=== PATIENT | female | born 1945 | race Caucasian/White ===

== ENCOUNTER 2016-08-06 07:56 | Day surgery (SDC) | payer MEDICARE, OTHER ==
[~2016-08-06] VITALS: Ht 162.6 cm; Wt 60.0 kg
[~2016-08-06 07:56] MED LIST: 0.9% Sodium Chloride 1,000 ML IV SCH; ASCO-294 PO; AZEL23SP NS; BENZ200C44 PO; CALC600T20 PO; CHOL3000 PO; ESOM40CA53 PO; FLUT9.9S NS; HYDR-3797 PO; MELO7.5O PO; MONT10TA23 PO; OMEG-38 PO; Sodium Chloride LOK Flush 10 mL Syringe IV PRN; TRAM50TA2 PO; fentaNYL-PF 50 mCg/mL 2 mL Inj IVPUSH PRN
[2016-08-06 08:20] VITALS: BP 145/73; PULSE 66; RESP 14; O2SAT 98
[2016-08-06] MEDS ORDERED: OMEP20TA86 PO (08:26)
[2016-08-06] MEDS ORDERED: ESTR0.45 PO (08:26)
[2016-08-06] MEDS: 0.9% Sodium Chloride 1,000 ML IV SCH ×2 (08:37→09:27)
--- NOTE | 2016-08-06 09:22 | PCM.ENDEGD ---
EGD Date of Service: Aug 06, 2016 Physician Chito Zamarripa MD Indication for Procedure Cough and reflux Post Procedure Dx & Findings: Fundic polyps questionable minimal Schatzki's ring Procedure Esophagogastroduodenoscopy PROCEDURE IN DETAIL: The patient was placed in left lateral decubitus position. Bite block was placed. Scope lubricated, placed in posterior pharynx, passed through the cricopharyngeus and esophagus, slowly advanced the entire length of the gastric pouch, pylorus was identified, scope passed through the pylorus and descending portion of duodenum, withdrawn in the antrum, retroflexed upon itself for view of fundus and cardia. Scope was then withdrawn through the oropharynx. Esophagus unremarkable. The Z line was intact. However while going into the stomach, there was as small and subtle Schatzki's ring which did not see again. It is unclear whether this is a true Schatzki's ring or not for just a well- developed mucosa from insufficient inflation. Stomach showed few less than 2 mm fundic polyps. Sampling biopsies done. Retroflexion was done. Otherwise the rest of the stomach was unremarkable. Stomach was easily inflatable and deflatable using air. I have asked the distal duodenum. Duodenum appeared normal with normal villous structures with normal appearing folds. Impression Fundic polyps status post sample biopsy Recommendation Await biopsy. Presedation Assessment Risks and Benefits Informed consent was obtained from the patient after all risks and benefits including but not limited to drug reaction, infection, pain, bleeding, perforation, as well as alternatives were discussed. Patient monitoring Continuous pulse oximetry, cardiac monitoring, blood pressure monitoring, IV access, and oxygen at 2L per nasal cannula. Periprocedural Fentanyl: Fentanyl 75mcg Incrementally Midazolam: Midazolam 4mg Incrementally Complications There were no periprocedural complications identified. Post Procedure Plan Post Procedure Recommendations 1. Restrict activities today. 2. Resume normal activities in the morning. 3. Resume medications. 4. GERD behavioral modification: - Avoid fatty, acidic, spicy, large meals - Do not lie down after meals - Do not eat or drink anything for at least 2 1/2 hours before going to bed at night - Discontinue tobacco and alcohol - Decrease or avoid caffeine - Avoid chocolate and mints - Decrease weight - Avoid aspirin and non steroidal anti-inflammatory agents (NSAID) such as Aleve, Advil, Mobic, Naproxen, Ibuprofen, etc 5. Add proton pump inhibitor. Take 30 minutes before 1st meal of the day. 6. Patient informed of normal post procedure side effects as bloating, drowsiness, blood streaking in the stool 7. If gastric biopsy reveal H.pylori, continue with appropriate treatment 8. If small bowel biopsy reveals celiac, continue with appropriate treatment 9. Please don't hesitate to call me with any questions Chito Zamarripa MD Aug 06, 2016 09:22
[2016-08-06 09:54] VITALS: BP 117/67; PULSE 73; RESP 16; O2SAT 99
--- NOTE | 2016-08-06 09:55 | PCM.ENDCOL ---
Colonoscopy Date of Service: Aug 06, 2016 Physician Chito Zamarripa MD Indication for Procedure screening Post Procedure Dx & Findings: polyps Procedure Colonoscopy prep adequate withdrawal 22 min PROCEDURE IN DETAIL: After unremarkable rectal examination Olympus video colonoscope was inserted patient's anal canal and was advanced to the cecum. Landmarks are identified including the ileocecal valve and appendiceal orifice. Scope was withdrawn systematically. The mucosa of the cecum, ascending, transverse, descending, sigmoid, rectal mucosa lined with whitish, pink, smooth, glistening, normal-appearing mucosa, normal fine branching, underlying vascularity, normal haustra. The patient tolerated procedure and was transported to observation area. Around the appendiceal orifice, there was a flat polypoid structure and no banding used. It appears that could be an adenoma. It seemed to go into the appendiceal orifice. Biopsy was taken at the site using cold forceps. In the cecum, there was a 4 mm polyp which was resected completely using cold snare. In the transverse colon, there was a 2 mm polyp which was resected completely using cold snare. In the descending colon there was about 6-8 mm flat polyp which was resected completely using cold snare. In the rectum, there was a 1 mm polyp which was resected completely using cold forceps. In the rectum retroflexion which showed mild hemorrhoids anal canal was inspected carefully and the way out and mild hemorrhoids noted. Impression Polyp 3 status post complete removal Flat polypoid structure going into the appendiceal orifice. Biopsy obtained. There is still evidence going into the appendiceal orifice. Hemorrhoids Recommendation Follow up in GI clinic to go over the biopsy results. Patient may need appendix removal. Presedation Assessment Risks and Benefits Informed consent was obtained from the patient after all risks and benefits including but not limited to drug reaction, infection, pain, bleeding, perforation, as well as alternatives were discussed. Patient monitoring Continuous pulse oximetry, cardiac monitoring, blood pressure monitoring, IV access, and oxygen at 2L per nasal cannula. Periprocedural Fentanyl: Fentanyl 25mcg Midazolam: Midazolam 2mg Incrementally Complications There were no periprocedural complications identified. Post Procedure Plan Post Procedure Recommendations 1. Restrict activities today. 2. Resume normal activities in the morning. 3. Resume medications. 4. Patient informed of normal post procedure side effects as bloating, drowsiness, blood streaking in the stool. 5. average risk CRCS. If colon polyps come back as: -Hyperplastic- can repeat colonoscopy in 10 years -Tubular adenoma- repeat colonoscopy in 5 years -Tubulovillous/villous adenoma- repeat colonoscopy in 3 years -If any dysplasia- return to clinic as soon as possible 6. Please don't hesitate to call me with any questions. Chito Zamarripa MD Aug 06, 2016 09:54
[2016-08-06 10:04] VITALS: BP 121/65; PULSE 54; RESP 16; O2SAT 98
[2016-08-06 10:14] VITALS: BP 118/63; PULSE 60; RESP 16; O2SAT 98
--- NOTE | 2016-08-07 15:53 | PATH ---
SURGICAL PATHOLOGY Attending Physician:Chito Zamarripa M.D. CASE STATUS: Signed Out PATIENT NAME: JACLYN YU PID: [id number] : 1945 DATE COLLECTED:08/06/2016 20:21 SPECIMEN: 1: Stomach, Polyp, Biopsy 2: Colon, Biopsy 3: Colon, Biopsy 4: Colon, Biopsy 5: Rectum, Biopsy CLINICAL HISTORY: REFLUX, SCREENING 1. FUNDUS POLYP 2. BIOPSY OF APPENDICAL ORIFICE POLYP 3. CECAL POLYP X1 4. TRANSVERSE COLON POLYP X1 and DESCENDING POLYP 5. RECTAL POLYP X1 FINAL DIAGNOSIS: 1. Stomach, Polyp, Biopsy: Fundic gland polyp. Negative for dysplasia and malignancy. 2. Colon, Appendiceal Orifice Polyp, Biopsy: Sessile serrated adenoma. 3. Cecum, Polyp, Biopsy: Sessile serrated adenoma. 4. Transverse Colon Polyp x1, Descending Colon Polyp, Biopsies: Consistent with sessile serrated adenomas. 5. Rectum, Polyp x1, Biopsy: Hyperplastic polyp. ICD10 D12.0; D12.1; D12.3; D12.4 GROSS DESCRIPTION: The specimen is received in five formalin filled containers labeled with the patient's name. 1). The specimen is sublabeled "fundus polyp" and consists of 2 portions of tissue which aggregate to 0.2 x 0.2 x 0.2 CM. The specimen is entirely submitted in cassette 1A. 2). The specimen is sublabeled "appendiceal orifice polyp" and consists of an extremely tiny less than 0.1 CM portion of tissue which is entirely submitted in cassette 2A. 3). The specimen this sublabeled "cecal polyp" and consists of a 0.6 0.5 x 0.3 CM portion of tissue which is entirely submitted in cassette 3A. 4). The specimen is sublabeled "descending colon polyp" and consists of multiple portions of tissue which aggregate to 0.5 x 0.5 x 0.2 CM. The specimen is entirely submitted in cassette 4A. (Also includes the Transverse Colon Polyp, EPY) 5). The specimen is sublabeled "rectal polyp" and consists of a 0.3 x 0.2 x 0.2 CM portion of tissue which is entirely submitted in cassette 5A. 08/06/2016 [facility] ICD-9 CODES: CPT CODES: 1: 40845 2: 62667 3: 86894 4: 08774 5: 96210 PROCEDURE/ADDENDA: Addendum SPI Addendum Diagnosis Slides reviewed at [facility] Pathology, by Dr. Clarisse Vasquez Stomach polyp, biopsy (part A): Fundic gland polyp. Negative for dysplasia. Colon, appendiceal orifice polyp, biopsy (part B): Sessile serrated adenoma. Cecum polyp, biopsy (part C): Sessile serrated adenoma. Transverse colon polyp x 1, descending colon polyp, biopsy (part D): Fragments of sessile serrated adenomas; see Comment. Rectum polyp x 1, biopsy (part E): Hyperplastic polyp. Comment: Multiple fragments of tissue were submitted in the part labeled "Transverse colon polyp x 1, descending colon polyp." We completely agree with Dr. Bustamante that they represent sessile serrated adenomas. Addendum Comment Please see [facility] Pathology report [id number] for complete details. This was a 2nd opinion requested by Dr. Stormy Romeo, [facility] Surgical. Electronically Signed Out Felicity Bustamante MD Electronically Signed Out Felicity Bustamante MD Merged With [facility] [address], [place] [address] Technical component performed at [facility], [facility] [address], [place], [address]
[2016-10-19] MEDS ORDERED: ESOM20CA28 PO (10:15)
[2016-10-19] MEDS ORDERED: OMEG1CAP15 PO (10:15)
[2016-10-19] MEDS ORDERED: CHOL10008 PO (10:15)
[2016-10-19] MEDS ORDERED: CALC600T20 PO (10:15)
[2016-10-19] MEDS ORDERED: ESTR0.45 PO (10:15)
[2016-10-19] MEDS ORDERED: ASPI-973 PO (10:15)
[2016-10-19] MEDS ORDERED: CEFU500T61 PO (10:15)
[2016-10-19] MEDS ORDERED: FLUT9.9S NS (10:15)
[2016-10-19] MEDS ORDERED: ASCO-294 PO (10:15)
[2016-10-19] MEDS ORDERED: MONT10TA23 PO (10:15)
== END 2016-08-06 23:59 | disposition home or self-care (01) ==
LOC: END 07:56
PROVIDERS: ATTEND Internal Medicine
DX: Z12.11 Encounter for screening for malignant neoplasm of colon (principal); D12.1 Benign neoplasm of appendix; D12.0 Benign neoplasm of cecum; D12.3 Benign neoplasm of transverse colon; K62.1 Rectal polyp; K64.9 Unspecified hemorrhoids; K31.7 Polyp of stomach and duodenum; R05 Cough
CPT/HCPCS: 43239; 45380; 45385; 88305; 99153; G0500; J2250; J3010; J7030

== ENCOUNTER 2016-09-21 12:22 | Emergency (ER) | payer MEDICARE, OTHER ==
[~2016-09-21] VITALS: Ht 162.6 cm; Wt 60.5 kg
[~2016-09-21 12:22] MED LIST changes: -0.9% Sodium Chloride 1,000 ML IV SCH; -ESOM40CA53 PO; +ESTR0.45 PO; -HYDR-3797 PO; +OMEP20TA86 PO; -Sodium Chloride LOK Flush 10 mL Syringe IV PRN; -fentaNYL-PF 50 mCg/mL 2 mL Inj IVPUSH PRN
[2016-09-21 12:24] VITALS: BP 140/89; PULSE 67; RESP 16; O2SAT 97
--- NOTE | 2016-09-21 12:30 | ED.REPORT ---
HPI-Chest Pain 40 and Over Date of Service Sep 21, 2016 ED Provider: Dr. Harper A 71 year old female with a history of deviated septum, GERD and osteoarthritis presents to the ED from complaining of productive cough with thin sputum, chest pain, and back pain onset today at 0330. She was driving into the area to get groceries and felt like her pain was becoming more severe, so she decided to go to . The pain is exacerbated by coughing but not with exertion. She rates it at 3/10 when not coughing, but 7/10 when coughing. She reports that the pain is not tender to touch, but feels like a wrap around her that is more significant in the back. She denies any fever or chills. The patient has had a baseline non-productive cough onset 15 moths ago that started in the patient's throat and has recently dropped into her chest. She reports that she has had episodes of feeling like she was choking from drainage. Providers have not been able to figure out if the cough is related to deviated septum or reflex. She was originally given nasal spray and reports that Montelukast helps her sleep at night. She recently had an EGD and explained that she has had no reflex and that her esophagus is pink and healthy. She reports having had asthma in her 30's. Nursing Notes Stated Complaint: COUGH/ CHEST PAIN Chief Complaint: Chest Pain-Non Cardiac Nature Nursing Notes Reviewed: Yes Allergies: Coded Allergies: No Known Allergies (Unverified , 09/21/16) Scheduled Ascorbate Calcium (Vitamin C) 500 Mg Tablet 500 MG PO DAILY Calcium Carbonate (Calcium Carbonate) 600 Mg Tablet 600 MG PO DAILY Estrogens, Conjugated (Premarin) 0.45 Mg Tablet 0.45 MG PO DAILY Meloxicam (Meloxicam) 7.5 Mg/5 Ml Oral.susp 15 MG PO DAILY Montelukast (Montelukast) 10 Mg Tablet 10 MG PO HS [place]-3/Dha/Epa/Fish Oil (Fish Oil 1,000 mg Softgel) 1 Each Capsule 1 EACH PO DAILY Omeprazole (Omeprazole) 20 Mg Tablet.dr 20 MG PO DAILY Scheduled PRN Tramadol (Tramadol) 50 Mg Tablet 50 MG PO TID PRN PRN For Pain Miscellaneous Medications Azelastine/Fluticasone (Dymista Nasal [place]) 23 Gm [place].pump 23 GM NS Benzonatate (Benzonatate) 200 Mg Capsule 200 MG PO Cholecalciferol (Vitamin D3) (Vitamin D3) 3,000 Unit Tablet 3,200 UNIT PO Fluticasone Propionate (Flonase Allergy Relief) 50 Mcg/Actuation [place].susp 9.9 ML NS General Time Seen by MD: 12:32 Chief Complaint Other (productive cough) Hx Obtained From: Patient Arrived By: Walk-in Sudden in Onset?: No Onset Occurred: 9 - 12 hours ago (0330 today) Symptom Duration: Since onset Severity: Current: Moderate Severity: Maximum: Severe Recent Healthcare: Recent doctor visit (Patient came from ) Similar Sx Previous: No Past Medical History Past Medical History Reports: Asthma (in her 30's) Past Surgical History ovarian cyst. 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 Constitutional: Denies: Chills, Fever Respiratory: Reports: Prod cough, clear Cardiovascular: Reports: Chest pain Complete sys rev & neg: except as marked. Physical Exam Initial Vital Signs Vital Signs (First) Date Time Temp Pulse Resp B/P Pulse Ox O2 Delivery O2 Flow Rate FiO2 09/21/16 12:24 36.4 67 16 140/89 97 Room Air Initial VS: Reviewed General/Constitutional: Awake, Alert Respiratory / Chest: Atraumatic, No respiratory distress Cardiovascular: Heart rate NL, Heart sounds NL Abdomen: Atraumatic, No guarding, No rebound Neck: Atraumatic, Full range of motion Back: Atraumatic Right upper back tenderness which reproduced her pain. Lower Extremity / Pelvis / MS: Atraumatic, Full range of motion Skin: Atraumatic, Color NL Neurologic: Oriented X3, Speech NL Head / Eyes: Atraumatic, Normocephalic, PERRL, EOMI ENT: Atraumatic, Mucous membranes moist Upper Extremity / MS: Atraumatic, Full range of motion Wrist / Hand: Atraumatic, Full range of motion Ankle / Foot: Atraumatic, Full range of motion Interpretation & Diagnostics Lab Results Interpretation Result Diagram: 09/21/16 1255 09/21/16 1255 Test 09/21/16 12:55 White Blood Count 4.9th/mm3 (3.8-10.1) Red Blood Count 4.37mil/mm3 (3.90-5.20) Hemoglobin 13.5g/dL (12.0-15.6) Hematocrit 41.3% (35.0-46.0) Mean Corpuscular Volume 94.5fL (81-100) Mean Corpuscular Hemoglobin 30.9pg (27.0-35.0) Mean Corpuscular Hemoglobin Concent 32.7% (32.0-37.0) Red Cell Distribution Width 12.6% (12.3-15.4) Platelet Count 226bil/L (150-400) Neutrophils (%) (Auto) 55.7% (40-74) Lymphocytes (%) (Auto) 33.7% (14-46) Monocytes (%) (Auto) 9.0% (4-12) Eosinophils (%) (Auto) 1.0% (0-5) Basophils (%) (Auto) 0.6% (0-3) D-Dimer < 0.5mg/L (<0.50) Sodium Level 139mEq/L (134-144) Potassium Level 4.3mEq/L (3.5-5.2) Chloride Level 101mEq/L (97-108) Carbon Dioxide Level 25mmol/L (18-29) Blood Urea Nitrogen 11mg/dL (8-27) Creatinine 0.69mg/dL (0.57-1.00) Estimat Glomerular Filtration Rate 119mL/min (>59) Glucose Level 105mg/dL (60-99) Calcium Level 9.5mg/dL (8.5-10.1) Magnesium Level 2.4mg/dL (1.6-2.6) Total Bilirubin 0.2mg/dL (0.0-1.2) Aspartate Amino Transf (AST/SGOT) 19U/L (0-50) Alanine Aminotransferase (ALT/SGPT) 10U/L (0-32) Alkaline Phosphatase 40U/L (25-165) Troponin T < 0.010ug/L (0.0-0.011) Total Protein 7.1g/dL (6.4-8.4) Albumin 4.3g/dL (3.4-5.0) ECG Interpretation ECG Interpretation: Rate is 59. Sinus rhythm. Inferior infarct, old. Time: 12:43 Interpreted by: ED physician Re-Eval/Medical Decision Med Decision/Clinical Course Overall symptoms seem to be located in the chest wall, d-dimer and troponin are negative, do not seem to be acute coronary syndrome or other life threatening pathology. Patient is feeling better and is agreeable for discharge. Source of Hx: Old records Time of Eval: 14:13 Re-Evaluation/Progress Note: Rechecked patient, explained test results, diagnosis, and plan for discharge. Patient understands and agrees with the plan. All questions addressed. Counseled Regarding: Diagnosis, Lab results Discharge & Departure Primary Impression: Chest wall pain Disposition: Home Discharge Condition All VS Reviewed: Yes Condition: Improved Additional Instructions: Use Tylenol as needed for pain. Take a baby aspirin daily. Call your regular doctor today for close outpatient follow-up. Return to ER as needed if worse. Referrals: Ronal Geiger MD (PCP) Scribe Attestation Portions of this note were transcribed by Stevie Carney. I, Dr. Harper personally performed the history, physical exam and medical decision-making; I reviewed and confirmed the accuracy of the information in the transcribed note. Signed by: Claire Gu, 09/21/2016 6321. copies to: Ronal Geiger MDSilvio Lopez Sep 21, 2016 12:30 Stevie Carney Sep 21, 2016 12:43
[2016-09-21] MEDS ORDERED: Ondansetron 2 mg/mL 2 mL Inj IVPUSH PRN (12:45)
[2016-09-21 13:04] LABS: BASOPHILS % (AUTO) 0.6 % (0-3); Mean Corpuscular Hemoglobin 30.9 pg (27.0-35.0); Mean Corpuscular Volume 94.5 fL (81-100); NEUTROPHILS % (AUTO) 55.7 % (40-74); Platelet Count 226 bil/L (150-400)
[2016-09-21 13:15] VITALS: BP 138/40; PULSE 65; RESP 21; O2SAT 98
[2016-09-21 13:29] LABS: TROPONIN T < 0.010 ug/L (0.0-0.011)
[2016-09-21 13:39] LABS: Magnesium 2.4 mg/dL (1.6-2.6)
[2016-09-21 14:30] VITALS: BP 121/59; PULSE 59; RESP 16; O2SAT 99
--- NOTE | 2016-09-21 15:00 | DRSVH ---
PROCEDURE: X-RAY CHEST, TWO VIEWS ([id number]) INDICATIONS: chest tightness TECHNIQUE: 2 views of the chest were acquired. COMPARISON: [facility], CR, XR CHEST 2VW, 04/09/2016, 11:21. FINDINGS: Surgical changes and devices: None. Lungs and pleura: Chronic diffuse interstitial prominence is unchanged. No pleural effusions or pneu mothorax. Mediastinum: Mediastinal contours are normal. Heart size is normal. Bones and chest wall: No suspicious bony abnormalities. Soft tissues appear unremarkable. IMPRESSION: No acute cardiopulmonary disease. Chronic interstitial prominence. Dictated by: Kiet Cavazos M.D. on 09/21/2016 at 14:58 Approved by: Kiet Cavazos M.D. on 09/21/2016 at 14:58
[2016-10-19] MEDS ORDERED: MONT10TA23 PO (10:15)
[2016-10-19] MEDS ORDERED: ASPI-973 PO (10:15)
[2016-10-19] MEDS ORDERED: ASCO-294 PO (10:15)
[2016-10-19] MEDS ORDERED: ESOM20CA28 PO (10:15)
[2016-10-19] MEDS ORDERED: FLUT9.9S NS (10:15)
[2016-10-19] MEDS ORDERED: OMEG1CAP15 PO (10:15)
[2016-10-19] MEDS ORDERED: CALC600T20 PO (10:15)
[2016-10-19] MEDS ORDERED: CEFU500T61 PO (10:15)
[2016-10-19] MEDS ORDERED: ESTR0.45 PO (10:15)
[2016-10-19] MEDS ORDERED: CHOL10008 PO (10:15)
== END 2016-09-21 14:31 | disposition home or self-care (01) ==
LOC: SED 12:22
DX: R07.89 Other chest pain (principal); J45.909 Unspecified asthma, uncomplicated; K21.9 Gastro-esophageal reflux disease without esophagitis
CPT/HCPCS: 36415; 71020; 80053; 83735; 84484; 85025; 85379; 93005; 99285; G0463

== ENCOUNTER 2016-11-02 09:24 | Inpatient (IN) | payer MEDICARE, OTHER ==
[2016-11-02] VITALS (12 sets, daily range): BP systolic 90–185; BP diastolic 57–86; PULSE 53–90; RESP 12–22; O2SAT 94–100
[~2016-11-02] VITALS: Ht 162.6 cm; Wt 67.6 kg
[2016-11-02] MEDS: Lactated Ringer's 1,000 ML IV SCH ×3 (05:00→11:55)
[~2016-11-02 09:24] MED LIST changes: +ASPI-973 PO; -AZEL23SP NS; -BENZ200C44 PO; +CHOL10008 PO; -CHOL3000 PO; +CeFAZolin 2 Gm/50 mL D5W IV Premix IV ONE; +ESOM20CA28 PO; +Lactated Ringer's 1,000 ML IV SCH; -MELO7.5O PO; -OMEG-38 PO; +OMEG1CAP15 PO; -OMEP20TA86 PO; -TRAM50TA2 PO
[2016-11-02] MEDS ORDERED: IBUP200C11 PO (09:45)
[2016-11-02] MEDS ORDERED: ACET325T51 PO (09:45)
[2016-11-02] MEDS ORDERED: CeFAZolin Inj 2 gm / 50mL D5W IV ONE (10:30)
--- NOTE | 2016-11-02 10:41 | PCM.HPANE ---
Patient Data Surgeon Admitting Provider: Attending Provider:Stormy Romeo MD Primary Care Physician:Ronal Geiger MD Other Provider:Demetrio Crouch Anesthesia Reason for Visit Appendiceal Polyp Ht/WT & BMI Height (Feet): 5 Height (Inches): 4 Weight (Kilograms): 60.9 Body Mass Index 22.00 Allergies Coded Allergies: teriparatide (Verified Adverse Reaction, Severe, severe pain, 10/31/16) Past Anesthesia History Anesthesia History: Denies:: Abnormal Airway, Anesthesia Reactions, Difficult Intubation, Fam Anesthesia Reaction, Fam Malignant Hypertherm, Malignant Hyperthermia Diabetes History Hx Diabetes?: No MRSA MRSA: No Medications Blood Thinner: Aspirin Home Meds Incl Beta [place]: No Reported Medications Ibuprofen (Advil)200 Mg [id number] Mg PO PRN 11/02/16 Acetaminophen 325 Mg Xdnsax061 Mg PO Q4H PRN For Pain Ref 0 11/02/16 Cholecalciferol (Vitamin D3) (Vitamin D3)1,000 Unit Tab.chew3,200 Unit PO DAILY 10/19/16 Ascorbate Calcium (Vitamin C)500 Mg Jpjlmi792 Mg PO DAILY 10/19/16 Estrogens, Conjugated (Premarin)0.45 Mg Tablet0.45 Mg PO DAILY 30 Days 10/19/16 Montelukast 10 Mg Ywjpxv90 Mg PO HS Ref 0 10/19/16 Fluticasone Propionate (Flonase Allergy Relief)50 Mcg/Actuation [place].susp9.9 Ml NS DAILY 10/19/16 [place]-3 Fatty Acids/Fish Oil (Fish Oil 1,000 mg Softgel)1 Each Capsule1 Each PO DAILY 10/19/16 Esomeprazole Magnesium (Nexium)20 Mg Capsule.dr20 Mg PO DAILY Ref 0 10/19/16 Calcium Carbonate 600 Mg Prdwzd066 Mg PO DAILY 10/19/16 Aspirin 81 Mg Tegdfq64 Mg PO DAILY Ref 0 10/19/16 Discontinued Reported Medications Cefuroxime Axetil (Cefuroxime)500 Mg Kzdgss565 Mg PO BID 10/19/16 History History of ENT Problems?: Yes HEENT History: Positive for:: Cataracts (bilateral) Dysphagia (poss oropharyngeal polyp-sched for ent consult) Sinus Problem (hx deviated septum/ surgery allergic rhinitis) TMJ (resolved) Denies:: Abnormal Airway Difficult Intubation Glaucoma (hx retinal hemorrhage) Hearing Problem Denture Type: None Teeth Condition: Within Normal Limits Other HEENT Pertinent History: prism glasses for double vision Hx of Heart Problems?: Yes Cardiovascular History: Positive for:: Chest Pain (12/2010 stress test wnl) Irregular Heartbeat (occ palpitations- negative workups) Peripheral Vascular (s/p vein sclerotherapy lle for venous insufficiency) Denies:: Abdominal Aortic Aneurism Atrial Fibrillation Heart Murmur Hx of Respiratory Problem?: Yes Respiratory History: Positive for:: Asthma (reactive airway disease- currently being treated ) Cough (recent bronchitis-improved) Denies:: COPD Emphysema Oxygen Administration Pneumonia Use of C-PAP Machine Use of Inhalers / NEBS Hx Neurologic Problems?: Yes Neurological History: Positive for:: Dizziness (hx of bppv) Denies:: CVA Dementia (mild memory loss) Headaches Multiple Sclerosis Parkinson's Disease Seizures TIA Other Neurological Pertinent: hx polymyalgia rheumatica Hx of GI Problems?: Yes Other GI Pertinent History: unresectable polyp at appendiceal orifice=current problem Hx of Problems?: Yes Female Hx: Denies:: Currently Problems with Breasts? Skin History: Denies:: History Skin Disorders? Pressure Ulcers Hx Musculoskeletal Problems?: Yes Musculoskeletal History: Positive for:: Musculoskeletal Trauma (hx lt lat epicondylitis) Osteoarthritis (with osteoporosis) Denies:: Back Injury Fibromyalgia Joint Replacement Hx of Psycho/Social Problems?: No Psycho Social History: Denies:: Anxiety Hx Depression Hx Surgeries?: Yes (ros/bso,exp lap,cataracts,septoplasty,perineal bladder surgery,vein sclerot) Hx Any Other Health Problems?: Yes Other History: Denies:: Cancer Endocrine Disease Hospitalization Thyroid Disease (past hx of being treated for) History Blood Transfusions: Positive for:: Accept Blood Products? Denies:: Blood Transfusions Hx Diabetes: No Hx Alcohol Use: No (not for 22 years- sober )Hx Substance Use: No Smoking Status: Never Smoker Have You Smoked inLast 12 mo: No Stop/Bang S-Snoring: Do You Snore Loudly: No T-Tired: feel tired, fatigued: No O-Obsered: Observed not breath: No P-Blood Pressure: treated: No B- Body Mass Index > 35 kg/m2: No A- Age over 50: Yes N- Neck Large Circumference: No G- Gender Male: No LAUREN Total Score: 1 LAUREN Risk Assessment: Low Risk, <3 Yes Risk Assessment Category Category 1A: Patient has history of documented sleep apnea, and HAS NOT received any narcotic, sedative or anesthesia administration during this stay. Category 1B: Patient has history of documented sleep apnea, and HAS received any narcotic , sedative or anesthesia administration during this stay Category 2: Patient has SUSPECTED Obstructive Sleep Apnea, and HAS received any narcotic , sedative or anesthesia administration during this stay. Category 3: Patient has SUSPECTED Obstructive Sleep Apnea and HAS NOT received narcotic, sedative or anesthesia administration during this stay. Category 4: Outpatient in Procedural Areas with known sleep apnea or who screen positive for High Risk via the STOP/BANG questionnaire. Exam Exam Vital Signs Vital Signs Date Time Temp Pulse Resp B/P Pulse Ox O2 Delivery O2 Flow Rate FiO2 11/02/16 09:59 36.4 56 16 138/80 98 Room Air General Appearance: Alert HEENT/AIRWAY: MP 2 Lungs: Clear to Auscultation Heart: Exam Unremarkable Meds/Labs/Diagnostics Admission Meds Current Medications Lactated Ringer's (Lr) 1,000 ml @ 120 mls/hr Q8H20M IV Last administered on t 09:56; Start 11/02/16 at 05:00; Stop 11/02/16 at 13:19 Plan Impression Patient chart reviewed, patient interviewed and anesthestic plan with risks, benefits, and alternatives discussed, and informed consent obtained. NPO per Anesth. Guidelines: Yes ASA Physical Status: ASA2 Mod Systemic Disease Anesthetic Plan: GA Bene/Risks/Altern/Consents: Yes HP Complete Prior to Induction: Yes Ehsan Apodaca MD Nov 02, 2016 10:40
[2016-11-02] MEDS ORDERED: Lactated Ringer's 1,000 ML IV SCH (11:38)
[2016-11-02] MEDS ORDERED: Lactated Ringer's 500 ML IV PRN (11:38)
[2016-11-02] MEDS ORDERED: Ondansetron 2 mg/mL 2 mL Inj IVPUSH PRN ×2 (11:40→12:50)
[2016-11-02] MEDS ORDERED: EPHEDrine Sulfate 50 mg/mL Inj IVPUSH PRN (11:40)
[2016-11-02] MEDS ORDERED: MetoCLOpramide 5 mg/mL 2 mL Inj IVPUSH PRN ×2 (11:40→12:50)
[2016-11-02] MEDS ORDERED: Dexamethasone 4 mg/mL Inj IVPUSH PRN (11:40)
[2016-11-02] MEDS ORDERED: Phenylephrine 10,000 mCg/mL Inj IVPUSH PRN (11:40)
[2016-11-02] MEDS ORDERED: fentaNYL-PF 50 mCg/mL 2 mL Inj IVPUSH PRN (11:40)
[2016-11-02] MEDS ORDERED: HYDROmorphone 1 mg/mL Inj IVPUSH PRN (11:40)
[2016-11-02] MEDS ORDERED: Bupivacaine-MPF 0.25%/EPI 30 mL Inj INJ ONE (11:54)
--- NOTE | 2016-11-02 12:46 | PCM.ANEP1 ---
Post Anesthesia Phase 1 PACU Phase 1 Assessment Vital Signs pACU: SAT 98% P 110 BP 186/86 RR 20, COUGHING TEMP 36.1 Vital Signs Date Time Temp Pulse Resp B/P Pulse Ox O2 Delivery O2 Flow Rate FiO2 11/02/16 09:59 36.4 56 16 138/80 98 Room Air Anesthetic Administered: GA Level of Alertness: Awake, talking PHIPPS's with Equal Strength: No Pain: No Nausea or Vomiting: No Cardiovascular Function and Hy: No Airway Device: Endotrachial Tube Oxygen Delivery: Room Air Lungs: Clear to Auscultation Dermatome Level: Full Sensation Complications: No Follow up Care: No Ehsan Apodaca MD Nov 02, 2016 12:46
[2016-11-02] MEDS: Dextrose 5% Lactated Ringer's 1,000 ML IV SCH ×2 (12:49→17:23)
[2016-11-02] MEDS ORDERED: Polyethylene Glycol (PEG) 17 Gm Powder PO PRN (12:50)
--- NOTE | 2016-11-02 12:57 | PCM.SURGOP ---
Surgical Operative Report Date of Service: Nov 02, 2016 Pre Operative Diagnosis Appendiceal polyp Post Operative Diagnosis Appendiceal polyp Procedure: Laparoscopic appendectomy with partial cecectomy Surgeon and Warehouse Supervisor: Surgeon: Stormy Romeo MD Assistants: Neo Garcia PA-C Indication for Procedure This is a 71-year-old woman who was undergoing screening colonoscopy and polyp was identified at the appendiceal orifice. Removal was attempted by her product technology scientist. He was able to retrieve portions of it, but it broke off and retracted into the lumen of the appendix, and he was no longer able to resect the remainder of it endoscopically. After careful inspection of the colonoscopy report and images, and discussed with the gastroneurologist, the plan was made to remove the appendix and a small wedge of cecum from the appendiceal base in order to remove the remainder of the polyp for diagnostic purposes. Findings: Normal appearing appendix Procedure Details The patient was brought to the operating room and placed in supine position. General endotracheal anesthesia was smoothly induced. Antibiotics had been infused previously in the emergency department. A warming blanket and SCDs were placed. The operative field was prepped and draped in sterile fashion. A Mcnulty had been placed. A pause was performed to confirm the correct patient, procedure, and site. The abdomen was entered using an infraumbilical transverse incision with a 12 mm Jennifer port under direct vision. Two additional 5 mm ports were placed in the midline, one in the lower abdomen and one at a suprapubic site. The appendix was then identified and retracted cephalad. The appendix appeared normal. A window was made at the base of the appendix and a 45 mm blue load Endo-ANGEL stapler was fired to resect the entire appendix and a small wedge of cecum. Prior to firing the stapler, the remaining cecum and terminal ileum were identified to confirm that no narrowing would occur to the lumen of either. An additional vascular load of the Endo-ANGEL stapler was then used to divide the appendiceal mesentery. There was a small amount of bleeding from the mesoappendiceal staple line, which was controlled with electrocautery. The appendix was removed using an EndoCatch bag via the infraumbilical port site. The abdomen was inspected and there was no pus, murky fluid, or bleeding. The 5 mm ports were removed. The infraumbilical port site was closed with an 0 PDS [id number] stitch. 0.5% Marcaine with epinephrine was injected into the fascia at the infraumbilical port site and into the skin at all port sites. The skin was closed with 4-0 Monocryl and sterile dressings were applied. Sponge, sharp, and instrument counts were correct at the end of the case. The patient was awakened from general anesthesia and taken to the postoperative care unit in good condition. The appendix was opened on the back table and appeared grossly normal with a very tiny lumen. Complications There were no periprocedural complications identified. Surgical Specimen Removed: Yes Specimen sent to Pathology: Yes Surgical Specimen description: Appendix Anesthetic Plan: GA Grafts, Implants: None Output, Estimated Blood Loss: 2 (ml) Blood Administration during nazario: No Stormy Romeo MD Nov 02, 2016 12:57
[2016-11-02] MEDS ORDERED: OXYC5TAB72 PO (12:58)
--- NOTE | 2016-11-02 12:58 | PCM.DISURG ---
Surgical Discharge Instruction Date of Service Nov 02, 2016 Dates of Hospitalization Date of Hospital Admission Providers Admitting Physician: Primary Care Physician: Ronal Geiger MD Attending Physician: Stormy Romeo MD Discharge Diagnosis Discharge Diagnosis Appendiceal polyp Post Operative diagnosis Appendiceal polyp Diet Discharge Diet: No restrictions Activity Discharge Activity-General: No restrictions Dressing and Incisional Care Dressing Care: Allow Steri Stripes to fall off, Remove outer dressing after 24 hrs Follow Up Plan Follow Up Plan F/U with Dr. Romeo in 2-4 weeks Stormy Romeo MD Nov 02, 2016 12:58
[2016-11-02] MEDS ORDERED: Albuterol-Ipratropium 3 mL Inhalation Solution ONE (13:03)
[2016-11-02] MEDS ORDERED: Albuterol-Ipratropium 120 Spray 4 Gm Inhaler INHALATION ONE (13:15)
[2016-11-02 14:23] LABS: BASOPHILS % (AUTO) 0.2 % (0-3); EOSINOPHILS % (AUTO) 0.2 % (0-5); MONOCYTES % (AUTO) 1.3 % (4-12); Mean Corpuscular Hemoglobin 30.8 pg (27.0-35.0); Mean Corpuscular Volume 94.9 fL (81-100); NEUTROPHILS % (AUTO) 84.1 % (40-74); Platelet Count 179 bil/L (150-400)
[2016-11-02] MEDS ORDERED: Albuterol-Ipratropium 3 mL Inhalation Solution NEB ONE (14:35)
--- NOTE | 2016-11-02 15:14 | NUR ---
Arrived, Belongings She arrived to [facility] at 1354 from PACU. Report received from UPHOLSTERY BUNDLER. She was settled into the room. Denied abdominal pain, but was complaining of some mild left shoulder pain. Declined pain medication for this. Assisted to the bathroom to void. She had a steady gait and was told that as long as she wasn't feeling dizzy she could get up independently. Care continues. 1445 - She said her belongings hadn't come with her. Called PACU and spoke to Gretta who said she would check with Day Surgery to see if her belongings were there. Her belongings were found and brought to her.
[2016-11-02 21:18] LABS: APPEARANCE,URINE CLEAR (CLEAR,HAZY); COLOR,URINE STRAW (YELLOW); OCCULT BLOOD,URINE NEGATIVE (NEGATIVE); UROBILINOGEN,URINE NORMAL (NORMAL)
[2016-11-03 00:46] VITALS: BP 112/48; PULSE 50; RESP 20; O2SAT 96
--- NOTE | 2016-11-03 03:31 | NUR ---
Mobility Pt is steady on her feet, reliable with call light; able to be independent in room. Adequate urine output, tolerating clear liquid diet, passing flatus, vitals stable. Hourly rounding ongoing.
[2016-11-03 05:15] VITALS: BP 119/66; PULSE 48; RESP 20; O2SAT 97
[2016-11-03 06:09] LABS: BASOPHILS % (AUTO) 0.1 % (0-3); EOSINOPHILS % (AUTO) 0 % (0-5); MONOCYTES % (AUTO) 8.3 % (4-12); Mean Corpuscular Hemoglobin 30.8 pg (27.0-35.0); Mean Corpuscular Volume 95.8 fL (81-100); NEUTROPHILS % (AUTO) 74.1 % (40-74); Platelet Count 173 bil/L (150-400)
[2016-11-03] MEDS ORDERED: fentaNYL-PF 50 mCg/mL 2 mL Inj ONE (10:59)
[2016-11-03] MEDS ORDERED: Neostigmine 1 mg/mL 10 mL Inj ONE (10:59)
[2016-11-03] MEDS ORDERED: Glycopyrrolate 0.2 MG/ML 1mL Inj ONE (10:59)
[2016-11-03] MEDS ORDERED: Propofol 10,000 mCg/mL 20 mL Inj ONE (10:59)
[2016-11-03] MEDS ORDERED: Dexamethasone 4 mg/mL Inj ONE (10:59)
[2016-11-03] MEDS ORDERED: Rocuronium 10 mg/mL 5 mL Inj ONE (10:59)
--- NOTE | 2016-11-03 11:17 | NUR ---
Discharge Patient DC to home with . All DC education and instructions given to patient and spouse. Both verbalize understanding of all. IV access DC'd intact. Prescriptions given to be filled at pharmacy of choice. Pt verbalizes all needs met at this time.
--- NOTE | 2016-11-03 11:17 | PROG NOTE ---
[address] [address] PROGRESS NOTE PATIENT: JACLYN YU : 1945 MR#: [id number] ADMIT: 11/02/2016 JOB ID: [id number] DATE: 11/03/2016 SUBJECTIVE: Postop day one laparoscopic partial cecectomy with appendectomy. She is doing well, stable vital signs, passing gas, tolerating p.o. Her abdomen is soft. Her incisions are healing. LABORATORIES: Hematocrit 33.9, white count is 7.4. IMPRESSION AND PLAN: Doing well. She would like to be discharged and I think this is reasonable. She will go home with [id number] Tylenol with backup oxycodone.
--- NOTE | 2016-11-05 17:53 | PCM.DC.SUR ---
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 Removal was attempted by her security systems engineer. He was able to retrieve portions of it, but it broke off and retracted into the lumen of the appendix, and he was no longer able to resect the remainder of it endoscopically. After careful inspection of the colonoscopy report and images, and discussed with the gastroneurologist, the plan was made to remove the appendix and a small wedge of cecum from the appendiceal base in order to remove the remainder of the polyp for diagnostic purposes. Vital Signs Vital Signs Date Time Temp Pulse Resp B/P Pulse Ox O2 Delivery O2 Flow Rate FiO2 11/02/16 09:59 36.4 56 16 138/80 98 Room Air General Appearance: Alert HEENT/AIRWAY: MP 2 Lungs: Clear to Auscultation Heart: Exam Unremarkable Consultants: None Hospital Course: The patient was admitted to the hospital for a laparoscopic appendectomy and was taken to the operating room. For details of the operation, please see the operative report. The patient tolerated the procedure well and was taken to her hospital room where she remained for the balance of her hospital stay. On postoperative day number 1 she was found to be tolerating a diet with significant pain and without nausea or vomiting. Her vital signs were stable and she was passing flatus with a soft abdomen and healing incisions. She was then discharged to home in good condition. Postop day one laparoscopic partial cecectomy with appendectomy. She is doing well, stable vital signs, passing gas, tolerating p.o. Her abdomen is soft. Her incisions are healing. Pathology: pending Disposition: Home in good condition. Follow-up Plan: Dressing Care: Allow Steri Stripes to fall off, Remove outer dressing after 24 hrs. Follow up with Dr. Romeo in 2 weeks. Acetaminophen (Acetaminophen) 325 Mg Tablet 325 MG PO Q4H PRN PRN For Pain ( Reported) Ascorbate Calcium (Vitamin C) 500 Mg Tablet 500 MG PO DAILY (Reported) Aspirin (Aspirin) 81 Mg Tablet 81 MG PO DAILY (Reported) Calcium Carbonate (Calcium Carbonate) 600 Mg Tablet 600 MG PO DAILY (Reported) Cholecalciferol (Vitamin D3) (Vitamin D3) 1,000 Unit Tab.chew 3,200 UNIT PO DAILY (Reported) Esomeprazole Magnesium (Nexium) 20 Mg Capsule.dr 20 MG PO DAILY (Reported) Estrogens, Conjugated (Premarin) 0.45 Mg Tablet 0.45 MG PO DAILY (Reported) Fluticasone Propionate (Flonase Allergy Relief) 50 Mcg/Actuation [place].susp 9.9 ML NS DAILY (Reported) Ibuprofen (Advil) 200 Mg Capsule 200 MG PO PRN (Reported) Montelukast (Montelukast) 10 Mg Tablet 10 MG PO HS (Reported) [place]-3 Fatty Acids/Fish Oil (Fish Oil 1,000 mg Softgel) 1 Each Capsule 1 EACH PO DAILY (Reported) oxyCODONE (oxyCODONE) 5 Mg Tablet 5-10 MG PO Q4H PRN PRN For Severe Pain copies to: Ronal Geiger MD, Samuel L PA-C November 05, 2016 17:53
--- NOTE | 2016-11-06 15:39 | PATH ---
SURGICAL PATHOLOGY Attending Physician:Stormy Romeo MD CASE STATUS: Signed Out PATIENT NAME: JACLYN YU PID: [id number] : 1945 DATE COLLECTED:11/02/2016 19:20 SPECIMEN: Appendix CLINICAL HISTORY: APPENDICEAL POLYP 1). APPENDIX FINAL DIAGNOSIS: 1.APPENDIX: APPENDIX WITH FIBROUS OBLITERATION AND NEUROMA. NO EVIDENCE OF MALIGNANCY. ICD10 CODE K38.8 GROSS DESCRIPTION: Received in formalin, labeled with the patient' s name and "appendix", is one previously opened appendix with attached fatty tissue measuring 5.5 x 1.5 x 1.0 cm. Linderman Machine Operator sections are submitted in cassette 1A. (:[id number]) The remainder of the tissue is entirely submitted in cassettes 1B through 1E. MICRO DESCRIPTION: See diagnosis. ICD-9 CODES: CPT CODES: 1: 14355 Electronically Signed Out Lois Salamanca MD [facility] [address], [place] [address] Technical component performed at [facility], [address] [place] [address] Ave[address], [place], [address]
== END 2016-11-03 11:00 | disposition home or self-care (01) | DRG 331 ==
LOC: SAS 09:24 → OSC 13:58
PROVIDERS: ADMIT Surgery; ATTEND Surgery
PROC: 0DBH4ZZ Excision of Cecum, Percutaneous Endoscopic Approach (ICD-10-PCS; 2016-11-02)
PROC: 0DTJ4ZZ Resection of Appendix, Percutaneous Endoscopic Approach (ICD-10-PCS; principal; 2016-11-02 11:15)
DX: D37.3 Neoplasm of uncertain behavior of appendix (principal); I73.9 Peripheral vascular disease, unspecified

== ENCOUNTER 2016-11-25 12:24 | Inpatient (IN) | payer MEDICARE, OTHER ==
[2016-11-25] VITALS (9 sets, daily range): BP systolic 114–159; BP diastolic 64–80; PULSE 93–114; RESP 14–20; O2SAT 93–98
[~2016-11-25] VITALS: Ht 162.6 cm; Wt 60.0 kg
[~2016-11-25 12:24] MED LIST changes: +ACET325T51 PO; -CeFAZolin 2 Gm/50 mL D5W IV Premix IV ONE; +IBUP200C11 PO; -Lactated Ringer's 1,000 ML IV SCH; +OXYC5TAB72 PO
--- NOTE | 2016-11-25 12:42 | ED.REPORT ---
HPI-Dyspnea / Wheezing Date of Service November 25, 2016 ED Provider: History of Present Illness: hx of asthma. 10/14 and 10/18 seen for cough,given antibiotics both times. chest and back pain at the [facility]. cough started last night almost non stop. cough has been ongoing for 4 days but has been getting worse. SOB with walking. Nursing Notes Stated Complaint: FEVER/DIFFICULTY BREATHING Chief Complaint: Respiratory Complaints Nursing Notes Reviewed: Yes Allergies: Coded Allergies: teriparatide (Verified Adverse Reaction, Severe, severe pain, 11/25/16) Scheduled Ascorbate Calcium (Vitamin C) 500 Mg Tablet 500 MG PO DAILY Aspirin (Aspirin) 81 Mg Tablet 81 MG PO DAILY Calcium Carbonate (Calcium Carbonate) 600 Mg Tablet 600 MG PO DAILY Cholecalciferol (Vitamin D3) (Vitamin D3) 1,000 Unit Tab.chew 3,200 UNIT PO DAILY Esomeprazole Magnesium (Nexium) 20 Mg Capsule.dr 20 MG PO DAILY Estrogens, Conjugated (Premarin) 0.45 Mg Tablet 0.45 MG PO DAILY Fluticasone Propionate (Flonase Allergy Relief) 50 Mcg/Actuation [place].susp 9.9 ML NS DAILY Ibuprofen (Advil) 200 Mg Capsule 200 MG PO PRN Montelukast (Montelukast) 10 Mg Tablet 10 MG PO HS [place]-3 Fatty Acids/Fish Oil (Fish Oil 1,000 mg Softgel) 1 Each Capsule 1 EACH PO DAILY Scheduled PRN Acetaminophen (Acetaminophen) 325 Mg Tablet 325 MG PO Q4H PRN PRN For Pain oxyCODONE (oxyCODONE) 5 Mg Tablet 5-10 MG PO Q4H PRN PRN For Severe Pain General Time Seen by MD: 12:41 Chief Complaint Cough, Shortness of breath Hx Obtained From: Patient Sudden in Onset?: No Past Medical History Past Medical History Reports: Asthma Past Surgical History ovarian cyst. Reports: Hysterectomy Smoking History Never Smoker Social History Alcohol Use: Denies alcohol use Other Social History: Occupation lives with Ambulatory Status Independent Review of Systems Basic Review of Systems Eyes: Vision NL, No discharge Hematologic: No bleeding, No bruising Psychiatric: Normal thought content Physical Exam Initial Vital Signs Vital Signs (First) Date Time Temp Pulse Resp B/P Pulse Ox O2 Delivery O2 Flow Rate FiO2 11/25/16 12:30 38.5 111 19 159/80 96 Room Air Initial VS: Reviewed, Vital signs abnormal Head / Eyes: Atraumatic, Normocephalic, PERRL ENT: Mucous membranes moist, Conjunctiva normal, No scleral icterus Abdomen / GI: Soft, Non-tender, No guarding, No rebound, No distention Back: No CVA tenderness Lymphatic: No lymphadenopathy Extremities: Vascular intact, Neuro intact, No swelling, No tenderness Skin: Warm, Dry, No cyanosis Neurologic: Alert, Oriented, Nonfocal Psychiatric: Mood/affect normal, Behavior normal, Normal thought content General/Constitutional: Awake, Alert Distress / Hydration: Positive: Distress mild Appearance / Presentation: Positive: Frail Neck: Atraumatic, Supple, No meningismus Respiratory / Chest: Atraumatic, Breath sounds NL Diminished Breath Sounds: Positive: Decreased L, Decreased R Rales / Rhonchi: Positive: Rales R up to 2/3 Heart Rate / Rhythm: Positive: Tachycardia ENT: Atraumatic, Airway patent, Mucous membranes moist, Pharynx NL Abdomen: Atraumatic, Soft, Non-tender Interpretation & Diagnostics Lab Results Interpretation Result Diagram: 11/25/16 1300 11/25/16 1300 Test 11/25/16 13:00 11/25/16 16:10 White Blood Count 12.9th/mm3 (3.8-10.1) Red Blood Count 3.96mil/mm3 (3.90-5.20) Hemoglobin 12.2g/dL (12.0-15.6) Hematocrit 37.7% (35.0-46.0) Mean Corpuscular Volume 95.2fL (81-100) Mean Corpuscular Hemoglobin 30.8pg (27.0-35.0) Mean Corpuscular Hemoglobin Concent 32.4% (32.0-37.0) Red Cell Distribution Width 12.9% (12.3-15.4) Platelet Count 202bil/L (150-400) Neutrophils (%) (Auto) 86.1% (40-74) Lymphocytes (%) (Auto) 6.8% (14-46) Monocytes (%) (Auto) 6.6% (4-12) Eosinophils (%) (Auto) 0.1% (0-5) Basophils (%) (Auto) 0.2% (0-3) Sodium Level 135mEq/L (134-144) Potassium Level 3.8mEq/L (3.5-5.2) Chloride Level 96mEq/L (97-108) Carbon Dioxide Level 21mmol/L (18-29) Blood Urea Nitrogen 7mg/dL (8-27) Creatinine 0.59mg/dL (0.57-1.00) Estimat Glomerular Filtration Rate 143mL/min (>59) Glucose Level 109mg/dL (60-99) Lactic Acid Level 1.4mmol/L (0.4-2.0) Calcium Level 9.2mg/dL (8.5-10.1) Total Bilirubin 0.7mg/dL (0.0-1.2) Aspartate Amino Transf (AST/SGOT) 21U/L (0-50) Alanine Aminotransferase (ALT/SGPT) 8U/L (0-32) Alkaline Phosphatase 52U/L (25-165) Troponin T < 0.010ug/L (0.0-0.011) Total Protein 7.2g/dL (6.4-8.4) Albumin 4.0g/dL (3.4-5.0) X-Ray Interpretation Xray Interpretation: PROCEDURE: X-RAY CHEST, TWO VIEWS ([id number]) INDICATIONS: cough fever TECHNIQUE: 2 views of the chest were acquired. COMPARISON: [facility], , XR CHEST 2VW, 09/21/2016, 12:50. FINDINGS: Surgical changes and devices: None. Lungs and pleura: No pleural effusions or pneumothorax. Focal opacity noted in the right lung base suspicious for pneumonia. Mediastinum: Mediastinal contours are normal. Heart size is normal. Bones and chest wall: No suspicious bony abnormalities. Soft tissues appear unremarkable. IMPRESSION: Right lower lobe pneumonia. Dictated by: Yvonne Laguerre MD, PhD on 11/25/2016 at 13:56 Approved by: Yvonne Laguerre MD, PhD on 11/25/2016 at 14:01 CT Chest Interpretation ROCEDURE: CT ANGIO CHEST PULMONARY EMBOLISM ([id number]) INDICATIONS: cough, sob fever TECHNIQUE: After the administration of intravenous contrast, 2 mm thick sections acquired from the pulmonary apices to the posterior costophrenic angles. 3-dimensional maximum intensity projection (MIP) coronal and sagittal reformats were then acquired through the thorax. For radiation dose reduction, the following was used: automated exposure control, adjustment of mA and/or kV according to patient size. COMPARISON: None. FINDINGS: Image quality: Excellent. Pulmonary arteries: Pulmonary arteries are normal in size, and demonstrate no intraluminal filling defects to suggest central pulmonary embolism. Lungs and pleura: Focal airspace opacities noted in the right lower lobe, right middle lobe in the left lower lobe suspicious for pneumonia. 1 cm in diameter masslike opacity noted in the lingula of the left upper lobe. Atelectasis noted in the dependent portions of the lungs. No pleural effusions or pneumothorax. Central and peripheral airways are patent. Mediastinum: Heart size is normal, without pericardial effusion. Atherosclerotic calcifications are noted in the aorta, great vessels and the coronary vasculature. No mediastinal or hilar adenopathy. Thoracic aorta is normal in caliber and enhancement. Esophagus is normal in caliber, without hiatal hernia. Bones and chest wall: No suspicious bony lesions. Ribs and thoracic spine appear intact throughout. Spine degenerative disease and facet arthropathy noted. Thyroid gland is within normal limits. No axillary or supraclavicular adenopathy. Abdomen: Visualized upper abdominal solid organs appear normal in the early arterial phase of enhancement. IMPRESSION: 1. Focal airspace opacities noted in the right lower lobe most consistent with pneumonia. Smaller airspace opacities noted in the right middle lobe and left lower lobe suspicious for multilobar pneumonia. 2. 1 cm nodule in the lingula left upper lobe. Recommend followup imaging based on criteria outlined below. 3. No pulmonary embolus. 4. Atherosclerosis including the coronary vasculature. Dictated by: Yvonne Laguerre MD, PhD on 11/25/2016 at 14:31 Approved by: Yvonne Laguerre MD, PhD on 11/25/2016 at 14:36 Re-Eval/Medical Decision Med Decision/Clinical Course 71 year old female presents for evualation of cough and fever. Patient reports a 2 month hx of trouble breathing. This episode started 4 days ago with almost non stop coughing from the evening on. Patient spend the night in the hospital 11/02/2016. Patient was having a colonscopy done and a mass was noted at the appendiceal junction, Part of it was removed and the mass went into the appendix. She underwent a lap appy. Mass was not malginant. As she has had 2 different antibiotics and a stay in the hospital on 11/02/2016. Discharge & Departure Impression: Primary Impression: Pneumonia Laterality: bilateral Lung location: lower lobe of lung Disposition: ADMITTED TO HOSPITAL Referrals: Ronal Geiger MD (PCP) EDSupervising Provider for APC: Fly Jansen MD copies to: Ronal Geiger MD, Sue ARNP November 25, 2016 12:41
[2016-11-25] MEDS ORDERED: 0.9% Sodium Chloride 1,000 ML IV STA (12:51)
[2016-11-25] MEDS ORDERED: Albuterol 2.5 mg/3 mL Inhalation Solution NEB ONE (12:55)
[2016-11-25] MEDS ORDERED: LORazepam 0.5 mg Tablet PO ONE (12:55)
[2016-11-25 13:23] LABS: BASOPHILS % (AUTO) 0.2 % (0-3); EOSINOPHILS % (AUTO) 0.1 % (0-5); MONOCYTES % (AUTO) 6.6 % (4-12); Mean Corpuscular Hemoglobin 30.8 pg (27.0-35.0); Mean Corpuscular Volume 95.2 fL (81-100); NEUTROPHILS % (AUTO) 86.1 % (40-74); Platelet Count 202 bil/L (150-400)
[2016-11-25 13:47] LABS: TROPONIN T < 0.010 ug/L (0.0-0.011)
--- NOTE | 2016-11-25 14:03 | DRSVH ---
PROCEDURE: X-RAY CHEST, TWO VIEWS ([id number]) INDICATIONS: cough fever TECHNIQUE: 2 views of the chest were acquired. COMPARISON: [facility], CR, XR CHEST 2VW, 09/21/2016, 12:50. FINDINGS: Surgical changes and devices: None. Lungs and pleura: No pleural effusions or pneumothorax. Focal opacity noted in the right lung base s uspicious for pneumonia. Mediastinum: Mediastinal contours are normal. Heart size is normal. Bones and chest wall: No suspicious bony abnormalities. Soft tissues appear unremarkable. IMPRESSION: Right lower lobe pneumonia. Dictated by: Yvonne Laguerre MD, PhD on 11/25/2016 at 13:56 Approved by: Yvonne Laguerre MD, PhD on 11/25/2016 at 14:01
[2016-11-25] MEDS ORDERED: Vancomycin Dose per Pharmacist XX ONE (14:04)
[2016-11-25] MEDS ORDERED: Vancomycin Inj 1,000 MG in IV Premix 1 EACH IV ONE (14:30)
--- NOTE | 2016-11-25 14:38 | DRSVH ---
PROCEDURE: CT ANGIO CHEST PULMONARY EMBOLISM ([id number]) INDICATIONS: cough, sob fever TECHNIQUE: After the administration of intravenous contrast, 2 mm thick sections acquired from the pulmonary api radha to the posterior costophrenic angles. 3-dimensional maximum intensity projection (MIP) coronal a nd sagittal reformats were then acquired through the thorax. For radiation dose reduction, the follo wing was used: automated exposure control, adjustment of mA and/or kV according to patient size. COMPARISON: None. FINDINGS: Image quality: Excellent. Pulmonary arteries: Pulmonary arteries are normal in size, and demonstrate no intraluminal filling d efects to suggest central pulmonary embolism. Lungs and pleura: Focal airspace opacities noted in the right lower lobe, right middle lobe in the l eft lower lobe suspicious for pneumonia. 1 cm in diameter masslike opacity noted in the lingula of t he left upper lobe. Atelectasis noted in the dependent portions of the lungs. No pleural effusions o r pneumothorax. Central and peripheral airways are patent. Mediastinum: Heart size is normal, without pericardial effusion. Atherosclerotic calcifications are noted in the aorta, great vessels and the coronary vasculature. No mediastinal or hilar adenopathy. Thoracic aorta is normal in caliber and enhancement. Esophagus is normal in caliber, without hiatal hernia. Bones and chest wall: No suspicious bony lesions. Ribs and thoracic spine appear intact throughout. Spine degenerative disease and facet arthropathy noted. Thyroid gland is within normal limits. No axillary or supraclavicular adenopathy. Abdomen: Visualized upper abdominal solid organs appear normal in the early arterial phase of enhanc ement. IMPRESSION: 1. Focal airspace opacities noted in the right lower lobe most consistent with pneumonia. Smaller a irspace opacities noted in the right middle lobe and left lower lobe suspicious for multilobar pneumo roseanna. 2. 1 cm nodule in the lingula left upper lobe. Recommend followup imaging based on criteria outline d below. 3. No pulmonary embolus. 4. Atherosclerosis including the coronary vasculature. Dictated by: Yvonne Laguerre MD, PhD on 11/25/2016 at 14:31 Approved by: Yvonne Laguerre MD, PhD on 11/25/2016 at 14:36
[2016-11-25] MEDS ORDERED: levoFLOXacin Inj 750 MG in IV Premix 1 EACH IV ONE (16:25)
[2016-11-25] MEDS ORDERED: Piperacillin-Tazo 3.375 Gm Inj 3.375 GM in Dextrose 5% Minibag Plus 50 ML IV ONE (16:25)
[2016-11-25] MEDS ORDERED: ALBU18HF (17:11)
[2016-11-25] MEDS ORDERED: MELO-259 (17:11)
[2016-11-25] MEDS ORDERED: IPRA15SP (17:11)
[2016-11-25 17:24] LABS: APPEARANCE,URINE CLEAR (CLEAR,HAZY); COLOR,URINE YELLOW (YELLOW); OCCULT BLOOD,URINE NEGATIVE (NEGATIVE); UROBILINOGEN,URINE NORMAL (NORMAL)
[2016-11-25] MEDS ORDERED: Ondansetron 2 mg/mL 2 mL Inj IVPUSH PRN ×2 (17:30→17:35)
[2016-11-25] MEDS ORDERED: Alum-Mag Hydrox-Simeth 30 mL Suspension PO PRN ×2 (17:30→17:35)
[2016-11-25] MEDS ORDERED: Polyethylene Glycol (PEG) 17 Gm Powder PO PRN (17:35)
[2016-11-25] MEDS ORDERED: Vancomycin Dose per Pharmacist XX SCH (17:40)
--- NOTE | 2016-11-25 18:03 | NUR ---
Admission patient arrived to room 3003. assumed care at 1750hrs. denies pain/discomfort, SOB. positive cough, dry and persistent. VSS.
--- NOTE | 2016-11-25 18:11 | PCM.CONPHA ---
Assessment/Plan Assessment/Plan Pharmacy Kinetic Dosing Vancomycin Indication: HCAP Vanc goal trough: 15-20 mcg/mL Pt wt: 60 kg Other ABX: ZOSYN Cultures: Blood PENDING SCr: 72mg/dL Assessment/Plan: - Loading dose of Vancomycin 1000 mg given in ED for (18 mg/kg dosing) -Will continue Vancomycin 750 mg Q12H (13 mg/kg dosing) with trough scheduled prior to 4th dose on 11/27/16 @0230. As much as I do not want to wake this sick patient up at 0230 in the morning she could possibly have a bad pneumonia so this takes precedence and ideally her MRSA screen comes back negative prior to the trough draw and drug is d/c. Pharmacy appreciates consult and will continue to monitor. Paula Lees PharmD November 25, 2016 18:11
[2016-11-25] MEDS ORDERED: Albuterol 2.5 mg/3 mL Inhalation Solution NEB PRN (20:00)
[2016-11-25] MEDS: Albuterol-Ipratropium 3 mL Inhalation Solution NEB SCH (20:55)
[2016-11-25] MEDS: diphenhydrAMINE 25 mg Capsule PO SCH (22:07)
--- NOTE | 2016-11-25 22:49 | PCM.HPMED ---
Subjective Date of Service November 25, 2016 Primary Provider: Admitting Physician: Timmy Bethea MD Primary Care Physician: Patrick Boudreaux MD Attending Physician: Timmy Bethea MD Chief Complaint: "Persistent cough" History of Present Illness: The patient is a very pleasant 71-year-old white female with a history of asthma which was not problematic until 11/13/2016. Patient developed significant chest and back pain and went to an urgent care. She saw Dr. Torres who diagnosed her with reactive airway disease and ordered a nebulizer treatment and inhalers and a's azithromycin for her. Patient took all the medications and treatments as prescribed. One week later her chest congestion worsened and patient had a cough with the production of yellow "gunk". She went back to urgent care and saw Dr. Hernandez who diagnosed her with bronchitis and gave her nebulizer treatments and started an antibiotic which she does not know the name of but knew that it was 500 mg twice a day. Patient took the antibiotic as prescribed. Patient then continued to have a cough over the last 24 hours along with chest discomfort and shortness of breath. Patient therefore came to [facility] emergency room and was evaluated by Mavis REILLY. Patient was found to have on chest x-ray and on CT scan focal airspace opacities noted in the right lower lobe most consistent with pneumonia. There is small airspace opacities noted in the right middle lobe and left lower lobe suspicious for multilobar pneumonia. There is also a 1 cm nodule in the lingula of the left upper lobe. As patient had failed 2 courses of oral antibiotic therapy patient was admitted to the hospital service for further evaluation and treatment. Review of Systems: General: Patient continued to cough throughout my interview and exam. He apparently has been coughing for 4 days straight despite completing 2 courses of oral antibiotic therapy as an outpatient prior to admission. HEENT: Patient has had a mild headache, patient has no diplopia, patient has no recent changes in vision. She has double vision in her right eye which is corrected with a prism in her corrective lenses on the right. Patient has no problems with their ears, nose or throat. Patient has no known dental problems. Patient has no pharyngitis or history of thrush. However, lately she has been having trouble swallowing. Neck: Patient has no stiffness in the neck. Patient has no lymphadenopathy. Patient has no other problems with their neck, other than trouble swallowing. States her pills get stuck in her throat. Pulmonary: Patient has a cough with shortness of breath and pain when she takes a deep breath consistent with pleurisy. Patient has been choking on her food recently and her pills get stuck in her throat. She notes some shortness of breath. Patient has been expectorating some yellow phlegm. Cardiovascular: Patient has chest pain with cough. However, she has no chest pain at rest or with exertion. Patient has no history of heart murmur. Patient has no palpitations. Patient has no history of myocardial infarction. Patient has no history of coronary artery disease. She has had stress test in the remote past which were "fine" Gastrointestinal: Patient has no history of hepatitis A, B or C. Patient has no history of peptic ulcer disease. Patient has no history of gastroesophageal reflux disease. Patient has had a poor appetite recently. However she has no history of nausea, vomiting, or diarrhea. Patient has no history of hematemesis , hematochezia, or melena. Patient has no history of colitis. Renal: Patient has no history of kidney disease. No history of kidney stones. Genitourinary: Patient has no history of dysuria or frequency. Patient does have stress incontinence. Patient did have bladder suspension surgery in the past. Musculoskeletal: Patient has no history of muscular skeletal problems other than osteoarthritis. Of note patient did have osteomyelitis of her right ankle after becoming bacteremic from an infected tooth. This was debrided and she required 6 weeks of IV antibiotics to treat the infection. Neurologic: Patient has no history of stroke, no history of seizure, no history of TIA. She is having difficulty swallowing lately and getting pills stuck in her throat. She also has been coughing while eating. Psychiatric: Patient has no history of psychiatric problems. 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 She has had episodes of depression specifically while living in [place] with her she went to seek psychological counseling for depression. The remainder of the entire review of systems was reviewed with patient and is as mentioned above otherwise negative. Allergies Coded Allergies: teriparatide (Verified Adverse Reaction, Severe, severe pain, 11/25/16) Home Medications Scheduled Ascorbate Calcium (Vitamin C) 500 Mg Tablet 500 MG PO DAILY Aspirin (Aspirin) 81 Mg Tablet 81 MG PO DAILY Calcium Carbonate (Calcium Carbonate) 600 Mg Tablet 600 MG PO DAILY Cholecalciferol (Vitamin D3) (Vitamin D3) 1,000 Unit Tab.chew 3,200 UNIT PO DAILY Esomeprazole Magnesium (Nexium) 20 Mg Capsule.dr 20 MG PO DAILY Estrogens, Conjugated (Premarin) 0.45 Mg Tablet 0.45 MG PO DAILY Fluticasone Propionate (Flonase Allergy Relief) 50 Mcg/Actuation [place].susp 9.9 ML NS DAILY Ibuprofen (Advil) 200 Mg Capsule 200 MG PO PRN Montelukast (Montelukast) 10 Mg Tablet 10 MG PO HS [place]-3 Fatty Acids/Fish Oil (Fish Oil 1,000 mg Softgel) 1 Each Capsule 1 EACH PO DAILY Scheduled PRN Acetaminophen (Acetaminophen) 325 Mg Tablet 325 MG PO Q4H PRN PRN For Pain oxyCODONE (oxyCODONE) 5 Mg Tablet 5-10 MG PO Q4H PRN PRN For Severe Pain PMH Asthma or reactive airway disease Endometriosis since the age of 12 Osteomyelitis of the right ankle which was an odontogenic infection History of colonic polyps one which was an appendiceal polyp Surgical History Bilateral cataract surgery in April and May 2015 Tonsillectomy and adenoidectomy Deviated septum surgery Phil teeth removal 4 Surgery for an ovarian cyst Total abdominal hysterectomy with bilateral salpingo-oophorectomy due to endometriosis at the age of 28 History of colonoscopy and EGD with removal of 4 colonic polyps History of appendectomy and partial cecum removal by Dr. Stormy Romeo 2016. History PICC line placement Family History Patient's mother smoked 3 packs a day and at the age of 80 from lung cancer after being diagnosed with lung cancer at 65. Patient's father from alcoholism and right brain disease". He in his late 60s.. Patient has 2 sisters who are healthy. Patient had 4 brothers. One older brother of hemochromatosis and alcoholism and subsequent liver disease One of complications of diabetes and his twin of complications of cirrhosis. One, the youngest, of multisystem organ failure Social History Hx Alcohol Use: No Hx Substance Use: No Smoking Status: Never Smoker (patient was exposed to heavy amounts of secondhand smoke as a child as both of her parents were very heavy smokers.) Living Arrangement: with Family (patient lives with her in a [place] on [facility] [address]) Additional Information Patient was born in the [facility]. She went to [employer] in [place]. 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 She then dropped out and quit and got . Patient has been now for 53 years. She is 2 para 2 prior to having her hysterectomy she had 2 boys who are now age 52 and 44. Patient was an alcoholic with her beverage of choice being wine. She quit July 16, years ago and has been sober since. Exam Vital Signs Vital Sign - Last Date Time Temp Pulse Resp B/P Pulse Ox O2 Delivery O2 Flow Rate FiO2 11/25/16 22:11 37.2 109 20 138/70 95 Room Air Exam General: Patient is in no apparent distress however continues to have coughing fits during my interview and exam. HEENT: Head is atraumatic and normocephalic. Eyes: Pupils are equally round and reactive to light and accommodation. Extraocular muscles are intact. Sclera are white, anicteric. Subconjunctival mucosa is pink. Ears and nose are unremarkable. Oropharynx: There is no mucosal lesions, there is no thrush, there is no pharyngitis. Neck: Is supple, there are no nodes, or masses or tenderness. Chest: Is significant for bibasilar crackles right greater than left with some extremely wheezing. Heart: Rate, rhythm is regular. There is no appreciable murmur, rub or gallop. Although, heart tones are muffled by course breath sounds Abdomen: Good bowel sounds are present. Abdomen is soft, nontender, no organomegaly or masses were appreciated. Extremities: Are symmetrical and well perfused. There is no edema, there is no cellulitis, no rash. Neurologic: There are no focal neurological deficits. Cranial nerves II through XII are intact. There are no sensory or motor deficits. Psychiatric: Patients mood is calm and shows no sign of agitation. Genital: Deferred Rectal: Deferred Lab and Diagnostics Result Diagram: 11/25/16 1300 11/25/16 1300 Microbiology Blood cultures are pending. Sputum culture was ordered Respiratory viral PCR screen was ordered MRSA screen was ordered X-Rays, CTs and MRIs PROCEDURE: CT ANGIO CHEST PULMONARY EMBOLISM ([id number]) INDICATIONS: cough, sob fever TECHNIQUE: After the administration of intravenous contrast, 2 mm thick sections acquired from the pulmonary apices to the posterior costophrenic angles. 3-dimensional maximum intensity projection (MIP) coronal and sagittal reformats were then acquired through the thorax. For radiation dose reduction, the following was used: automated exposure control, adjustment of mA and/or kV according to patient size. COMPARISON: None. FINDINGS: Image quality: Excellent. Pulmonary arteries: Pulmonary arteries are normal in size, and demonstrate no intraluminal filling defects to suggest central pulmonary embolism. Lungs and pleura: Focal airspace opacities noted in the right lower lobe, right middle lobe in the left lower lobe suspicious for pneumonia. 1 cm in diameter masslike opacity noted in the lingula of the left upper lobe. Atelectasis noted in the dependent portions of the lungs. No pleural effusions or pneumothorax. Central and peripheral airways are patent. Mediastinum: Heart size is normal, without pericardial effusion. Atherosclerotic calcifications are noted in the aorta, great vessels and the coronary vasculature. No mediastinal or hilar adenopathy. Thoracic aorta is normal in caliber and enhancement. Esophagus is normal in caliber, without hiatal hernia. Bones and chest wall: No suspicious bony lesions. Ribs and thoracic spine appear intact throughout. Spine degenerative disease and facet arthropathy noted. Thyroid gland is within normal limits. No axillary or supraclavicular adenopathy. Abdomen: Visualized upper abdominal solid organs appear normal in the early arterial phase of enhancement. IMPRESSION: 1. Focal airspace opacities noted in the right lower lobe most consistent with pneumonia. Smaller airspace opacities noted in the right middle lobe and left lower lobe suspicious for multilobar pneumonia. 2. 1 cm nodule in the lingula left upper lobe. Recommend followup imaging based on criteria outlined below. 3. No pulmonary embolus. 4. Atherosclerosis including the coronary vasculature. Dictated by: Yvonne Laguerre MD, PhD on 11/25/2016 at 14:31 Approved by: Yvonne Laguerre MD, PhD on 11/25/2016 at 14:36 PROCEDURE: X-RAY CHEST, TWO VIEWS ([id number]) INDICATIONS: cough fever TECHNIQUE: 2 views of the chest were acquired. COMPARISON: [facility], CR, XR CHEST 2VW, 09/21/2016, 12:50. FINDINGS: Surgical changes and devices: None. Lungs and pleura: No pleural effusions or pneumothorax. Focal opacity noted in the right lung base suspicious for pneumonia. Mediastinum: Mediastinal contours are normal. Heart size is normal. Bones and chest wall: No suspicious bony abnormalities. Soft tissues appear unremarkable. IMPRESSION: Right lower lobe pneumonia. Dictated by: Yvonne Laguerre MD, PhD on 11/25/2016 at 13:56 Approved by: Yvonne Laguerre MD, PhD on 11/25/2016 at 14:01 Assessment & Plan The patient is a very pleasant 71-year-old white female with a history of asthma which was not problematic until 11/13/2016. Patient developed significant chest and back pain and went to an urgent care. She saw Dr. Torres who diagnosed her with reactive airway disease and ordered a nebulizer treatment and inhalers and a's azithromycin for her. Patient took all the medications and treatments as prescribed. One week later her chest congestion worsened and patient had a cough with the production of yellow "gunk". She went back to urgent care and saw Dr. Hernandez who diagnosed her with bronchitis and gave her nebulizer treatments and started an antibiotic which she does not know the name of but knew that it was 500 mg twice a day. Patient took the antibiotic as prescribed. Patient then continued to have a cough over the last 24 hours along with chest discomfort and shortness of breath. Patient therefore came to [facility] emergency room and was evaluated by Mavis REILLY. Patient was found to have on chest x-ray and on CT scan focal airspace opacities noted in the right lower lobe most consistent with pneumonia. There is small airspace opacities noted in the right middle lobe and left lower lobe suspicious for multilobar pneumonia. There is also a 1 cm nodule in the lingula of the left upper lobe. As patient had failed 2 courses of oral antibiotic therapy patient was admitted to the hospital service for further evaluation and treatment. # Bilateral pneumonia. Present at the time of admission. Active - Patient failed 2 courses of oral antibiotic therapy as an outpatient. - Rule out aspiration pneumonitis as patient is admitting that she chokes on food and coughs while eating. States that she has trouble swallowing her pills lately. We will ask speech therapy to see the patient. In November perform a modified barium swallow. - Rule out healthcare associated pneumonia as patient was hospitalized on 2016 for an appendectomy. - Rule out resistant bacterial infection such as MRSA. - Rule out viral infection as patient is sneezing and coughing. - We will continue vancomycin per pharmacy, Zosyn, and levofloxacin pending further testing. # Asthma or reactive airway disease with acute exacerbation secondary to above. Present on admission. Active - We will continue nebulizer treatments with DuoNeb SVN every 6 hours. - We will continue albuterol when necessary. # History of recent colonoscopy with polypectomy [address] Zamarripa.. One polyp was found in the appendix. - Patient is status post appendectomy by Dr. Stormy Romeo 11/02/2016. - She also had an EGD with no remarkable findings. Disposition: Patient is likely to be here more than 2 midnights for the evaluation and treatment of the above problems. Therefore, patient was admitted as an inpatient. Pain Evaluation: Adequate Pain Control GI Prophylaxis: Proton Pump Inhibitor VTE Prophylaxis: Sub-Q Enoxaparin Resuscitation Status: CPR: Attempt Resuscitation Timmy Bethea MD November 25, 2016 22:49
[2016-11-26] VITALS (12 sets, daily range): BP systolic 103–145; BP diastolic 66–75; PULSE 69–109; RESP 18–22; O2SAT 96–99
[2016-11-26] MEDS: Piperacillin-Tazo 3.375 Gm Inj 3.375 GM in Dextrose 5% Minibag Plus 50 ML IV SCH ×3 (00:43→17:40)
[2016-11-26] MEDS ORDERED: Vancomycin Inj 750 MG in 0.9% Sodium Chloride 250 ML IV SCH (03:00)
--- NOTE | 2016-11-26 03:23 | NUR ---
Cough: Pt with harsh, productive cough early in the shift. Denies shortness of breath, RA mid 90s. At HS pt received ordered Tylenol and Benadryl to sleep and Tessalon Pearles for cough. Was able to get about 5 hours of sleep after medication, rare cough. MRSA and viral PCR swabs sent to lab.
[2016-11-26] MEDS: Albuterol-Ipratropium 3 mL Inhalation Solution NEB SCH ×4 (04:15→20:12)
[2016-11-26] MEDS: Pantoprazole 40 mg ER24 Tablet PO SCH (06:37)
[2016-11-26 06:46] LABS: BASOPHILS % (AUTO) 0.1 % (0-3); EOSINOPHILS % (AUTO) 0.7 % (0-5); MONOCYTES % (AUTO) 8.9 % (4-12); Mean Corpuscular Hemoglobin 30.8 pg (27.0-35.0); Mean Corpuscular Volume 95.7 fL (81-100); NEUTROPHILS % (AUTO) 73.2 % (40-74); Platelet Count 165 bil/L (150-400)
[2016-11-26 07:03] LABS: Magnesium 2.2 mg/dL (1.6-2.6)
[2016-11-26 07:20] LABS: ERYTHROCYTE SEDIMENTATION RATE 48 mm/hr (0-40)
[2016-11-26] MEDS: PREMARIN 0.45 MG PO SCH (08:30)
--- NOTE | 2016-11-26 08:40 | DRSVH ---
PROCEDURE: X-RAY CHEST, TWO VIEWS ([id number]) INDICATIONS: Follow up for pneumonia TECHNIQUE: 2 views of the chest were acquired. COMPARISON: [facility], CR, XR CHEST 2VW, 04/09/2016, 11:21. [facility], C R, XR CHEST 2VW, 09/21/2016, 12:50. [facility], CR, XR CHEST 2VW, 11/25/2016, 13:29. FINDINGS: Surgical changes and devices: None. Lungs and pleura: Right lower lobe focal airspace opacity slightly less confluent when compared to pr ior examination. Diffuse, widespread bilateral interstitial opacities are noted and improved since t he prior study. No pleural effusion or pneumothorax. Mediastinum: Mediastinal contours are normal. Heart size is normal. Bones and chest wall: No suspicious bony abnormalities. Soft tissues appear unremarkable. IMPRESSION: 1. Mild edema is resolved since the prior prior examination and there has been interval decrease in c onfluency of the previously noted right lower lobe airspace opacity suggesting resolving patchy pulmo nary edema and/or pneumonia. Continued radiographic surveillance to resolution is recommended. Dictated by: Rolando Anton A Interpreted: Jeremiah Rivera MD on 11/26/2016 at 8:38 Transcribed by: TOBY on 11/26/2016 at 8:40 Approved by: Jeremiah Rivera M.D. on 11/26/2016 at 9:43
[2016-11-26] MEDS: Omega-3 Fatty Acids 1,000 mg Capsule PO SCH (08:43)
[2016-11-26] MEDS: Ascorbic Acid 500 mg Tablet PO SCH (08:43)
[2016-11-26] MEDS: Potassium Chloride 20 mEq SR Tablet PO SCH ×2 (10:10→20:41)
--- NOTE | 2016-11-26 11:17 | NUR ---
Evaluation completed. Please go to "Notes" then click on "Assessments and Notes" (bottom left corner of screen). Then select appropriate discipline tab on top of screen.
--- NOTE | 2016-11-26 11:45 | DRSVH ---
[facility] [address] [place] [address] Echocardiogram Report Name: JACLYN YU SStudy Date : 11/26/2016 Height: 64 in Hospital Exam Location: [facility] Weight: 132 lb Gender: Female BSA: 1.6 m2 : 1945 Age: 71 yrs BP: 131/68 mm Hg Reason For Study: PULMONARY INFILTRATE Ordering Physician: HOSPITALIST [facility] Performed By: Harper Camilo Referring Physician: Dr. Dallas Boudreaux Interpretation Summary The ejection fraction is estimated to be 60-65%. There is mild mitral regurgitation. The right ventricular systolic pressure is estimated at 25 mmHg assuming a right atrial pressure of 3 mm Hg. Procedure: A two-dimensional transthoracic echocardiogram with color flow and Doppler was performed. The study quality was technically adequate. There is no prior echocardiogram noted for this patient. The patient was in normal sinus rhythm during the exam. The patient had frequent PACs during the exam. Left Ventricle: The left ventricle is normal in size. Left ventricular wall thickness is mild-moderately increased. A false chord is noted (normal variant). The ejection fraction is estimated to be 60-65%. There are no focal wall motion abnormalities. Assessment of diastolic parameters indicates normal left ventricular diastolic function and normal filling pressures. Right Ventricle: The right ventricle is normal in size and function. Atria: Both atria are normal in size. There is no Doppler evidence for an interatrial shunt. Mitral Valve: The mitral valve leaflets appear mildly thickened, but open well. There is mild mitral regurgitation. Aortic Valve: The aortic valve is trileaflet. The aortic valve opens well. No aortic regurgitation is present. Tricuspid Valve: The tricuspid valve leaflets are thin and pliable. There is trace tricuspid regurgitation. The right ventricular systolic pressure is estimated at 25 mmHg assuming a right atrial pressure of 3 mm Hg. Pulmonic Valve: The pulmonic valve is not well visualized. There is no pulmonic valvular regurgitation. Great Vessels: The aortic root is normal size. The ascending aorta could not be visualized. The aortic arch could not be visualized. The IVC is of normal diameter and collapses greater than 50% with a sniff. This suggests a low right atrial pressure of 3 mm Hg. Pericardium/ Pleura There is no pericardial effusion. There is no pleural effusion. MMode/2D Measurements & Calculations LVIDd: 4.0 cm LA dimension: 2.9 cm RA long axis LVOT diam LVIDs: 2.1 cm FS: 46.7 % LA A2 area: 14.8 cm RA area AoV Opening EPSS: 0.15 cm LA A4 area: 15.7 cm IVSd: 1.4 cm LA length (vol): 4.9 cm : 13.4 cm Ao root diam LVPWd: 1.2 cm LA vol: 40.2 ml RA vol: 33.8 ml: 3.8 cm LA vol index RA : 20.6 mm2 IVC diam: 1.4 cm LV conklin. diameter/BSA LV sys. diameter/BSA RVD1 (basal) TAPSE: 2.3 cm (cm/m^2): 2.4 (cm/m^2): 1.3 Doppler Measurements & Calculations Ao V2 max MV E max pacheco MV E/A: 1.0 TR max pacheco : 165.5 cm/sec : 95.4 cm/sec Med Peak E' Pacheco : 236.6 cm/sec Ao max PG MV A max pacheco TR max PG : 11.0 mmHg : 95.1 cm/sec E/E' med: 9.9 : 22.4 mmHg Ao mean PG MV P1/2t: 58.7 msec Lat Peak E' Pacheco PA V2 max : 78.7 cm/sec LVOT Max Pacheco E/E' lat: 8.1 PA mean PG : 145.0 cm/sec E/e' average: 9.0 PA Accel Time ALONDRA(I,D): 2.5 cm : 0.10 sec sev ratio MV dec time MV P1/2t max pacheco Ao V2 mean LV V1 max PG : 0.20 sec : 106.8 cm/sec MVA(P1/2t): 3.7 cm2 Ao V2 VTI: 32.3 cm LV V1 VTI ALONDRA(V,D): 2.3 cm2 : 30.1 cm PA V2 mean ALONDRA indexed to BSA : 55.9 cm/sec (cm^2/m^2): 1.5 Electronically signed by: Marco A Benito on Reading Physician:11/26/2016 11:44 AM
--- NOTE | 2016-11-26 12:50 | NUR ---
episodes of PSVT per property assessment monitor, at 1146hrs patient had an episode of PVST rate in 140's lasting 3.12 seconds and again at 1220hrs rate 135 lasting 5 seconds. During the first episode patient was walking with physical therapy, 2nd episode patient was sitting at edge of bed. patient reported feeling a "little lightheaded". denies CP/SOB. Dr Bethea notified. no new orders at this time.
--- NOTE | 2016-11-26 13:14 | NUR ---
Evaluation completed. Please go to "Notes" then click on "Assessments and Notes" (bottom left corner of screen). Then select appropriate discipline tab on top of screen.
--- NOTE | 2016-11-26 13:35 | NUR ---
Social Work-initial assessment: Data:See initial assessment. Pt is a 71 y/o female who was admitted on 11/25/16 for multilobar pneumonia per H&P. Pt's insurance is [employer] and [place] [employer] and PCP is Patrick Boudreaux MD. EMR Reviewed. Pt's readmission score is not available. SW met with ptand Bill at bedside to discuss discharge planning, SW role explained. Pt is alert and oriented x3. Pt resides at home with in a single level home with two steps to enter where pt remains independent with basic ADLs. Pt uses no DME at baseline and drives POV. Pt has no HH or SNF history. Pt states she has completed DPOA/ advanced directive and SW requested copies for the hospital. 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 ordered PT and ST evaluation and echo is pending. Pt's family to provide transport home at discharge. SW provided phone number and plan on white board in room. SW will continue to follow. Assessment:Pt who resides at home alone. Plan:Pt to likely discharge home via . PT and ST evaluation is pending. SW will follow for HH needs pending orders from . SW will continue to follow. RAFFI Ortiz Addendum: 11/26/16 at 1344 by DEBBIE DON SS Amended: Links added.
[2016-11-26] MEDS: levoFLOXacin Inj 500 MG in IV Premix 1 EACH IV SCH (16:26)
--- NOTE | 2016-11-26 16:38 | NUR ---
spiritual care; routine conversational visit. pt shared personal history, her surprise at her diagnosis following many months of medical needs and challenges.
--- NOTE | 2016-11-26 18:05 | NUR ---
cough improved/PSVT patient reports improved cough this afternoon. Denies CP/SOB. patient ambulated with PT today, swallow evaluation completed. patient had 2 episodes of PSVT earlier today. Dr Bethea notified, no change in orders. no other episodes since previous documentation. continue to monitor
[2016-11-26] MEDS: diphenhydrAMINE 25 mg Capsule PO SCH (20:45)
--- NOTE | 2016-11-26 22:38 | PCM.PNMED ---
Subjective Date of Service November 26, 2016 Subjective The patient has no new complaints. She continues to have a productive cough and is feeling a little bit better than she was yesterday. Exam Vital Signs Vital Sign - Last Date Time Temp Pulse Resp B/P Pulse Ox O2 Delivery O2 Flow Rate FiO2 11/26/16 22:15 36.8 81 22 127/66 98 Room Air Intake and Output 11/25/16 11/25/16 11/26/16 Cumulative From/Thru 15:00 23:00 07:00 11/25/16 12:30 - 11/26/16 06:37 Intake Total 1000 ml 100 ml 1193 ml 2293 ml Output Total 100 ml 1200 ml 1300 ml Balance 1000 ml 0 ml -7 ml 993 ml Intake Oral 100 ml 850 ml 950 ml IV Total 1000 ml 343 ml 1343 ml Output Urine Total 100 ml 1200 ml 1300 ml # Bowel Movements 0 0 Exam General: Patient is in no apparent distress. She is having less frequent coughing but still coughing during my interview and exam today.. HEENT: Head is atraumatic and normocephalic. Eyes: Pupils are equally round and reactive to light and accommodation. Extraocular muscles are intact. Sclera are white, anicteric. Subconjunctival mucosa is pink. Ears and nose are unremarkable. Oropharynx: There is no mucosal lesions, there is no thrush, there is no pharyngitis. Neck: Is supple, there are no nodes, or masses or tenderness. Chest: Is significant for bibasilar crackles right greater than left with some expiratory wheezing. Overall lungs are slightly clearer than yesterday Heart: Rate, rhythm is regular. There is no appreciable murmur, rub or gallop. Although, heart tones continued to be muffled by course breath sounds Abdomen: Good bowel sounds are present. Abdomen is soft, nontender, no organomegaly or masses were appreciated. Extremities: Are symmetrical and well perfused. There is no edema, there is no cellulitis, no rash. Neurologic: There are no focal neurological deficits. Cranial nerves II through XII are intact. There are no sensory or motor deficits. Psychiatric: Patients mood is calm and shows no sign of agitation. Genital: Deferred Rectal: Deferred Lab and Diagnostics Result Diagram: 11/26/1612 11/26/16 0612 Microbiology Blood cultures are pending. Sputum culture was ordered and is pending MRSA screen was negative RHINOVIRUS OR ENTEROVIRUS PCR Final 11/26/16-858 Organism 1 RHINOVIRUS/ENTEROVIRUS RHINOVIRUS OR ENTEROVIRUS DETECTED TIME CALLED: 858 DATE CALLED: 11/26/16 FLOOR/DOCTOR: CHULA/SIA Diaz CALLED BY: [facility]F X-Rays, CTs and MRIs PROCEDURE: CT ANGIO CHEST PULMONARY EMBOLISM ([id number]) INDICATIONS: cough, sob fever TECHNIQUE: After the administration of intravenous contrast, 2 mm thick sections acquired from the pulmonary apices to the posterior costophrenic angles. 3-dimensional maximum intensity projection (MIP) coronal and sagittal reformats were then acquired through the thorax. For radiation dose reduction, the following was used: automated exposure control, adjustment of mA and/or kV according to patient size. COMPARISON: None. FINDINGS: Image quality: Excellent. Pulmonary arteries: Pulmonary arteries are normal in size, and demonstrate no intraluminal filling defects to suggest central pulmonary embolism. Lungs and pleura: Focal airspace opacities noted in the right lower lobe, right middle lobe in the left lower lobe suspicious for pneumonia. 1 cm in diameter masslike opacity noted in the lingula of the left upper lobe. Atelectasis noted in the dependent portions of the lungs. No pleural effusions or pneumothorax. Central and peripheral airways are patent. Mediastinum: Heart size is normal, without pericardial effusion. Atherosclerotic calcifications are noted in the aorta, great vessels and the coronary vasculature. No mediastinal or hilar adenopathy. Thoracic aorta is normal in caliber and enhancement. Esophagus is normal in caliber, without hiatal hernia. Bones and chest wall: No suspicious bony lesions. Ribs and thoracic spine appear intact throughout. Spine degenerative disease and facet arthropathy noted. Thyroid gland is within normal limits. No axillary or supraclavicular adenopathy. Abdomen: Visualized upper abdominal solid organs appear normal in the early arterial phase of enhancement. IMPRESSION: 1. Focal airspace opacities noted in the right lower lobe most consistent with pneumonia. Smaller airspace opacities noted in the right middle lobe and left lower lobe suspicious for multilobar pneumonia. 2. 1 cm nodule in the lingula left upper lobe. Recommend followup imaging based on criteria outlined below. 3. No pulmonary embolus. 4. Atherosclerosis including the coronary vasculature. Dictated by: Yvonne Laguerre MD, PhD on 11/25/2016 at 14:31 Approved by: Yvonne Laguerre MD, PhD on 11/25/2016 at 14:36 PROCEDURE: X-RAY CHEST, TWO VIEWS ([id number]) INDICATIONS: cough fever TECHNIQUE: 2 views of the chest were acquired. COMPARISON: [facility], CR, XR CHEST 2VW, 09/21/2016, 12:50. FINDINGS: Surgical changes and devices: None. Lungs and pleura: No pleural effusions or pneumothorax. Focal opacity noted in the right lung base suspicious for pneumonia. Mediastinum: Mediastinal contours are normal. Heart size is normal. Bones and chest wall: No suspicious bony abnormalities. Soft tissues appear unremarkable. IMPRESSION: Right lower lobe pneumonia. Dictated by: Yvonne Laguerre MD, PhD on 11/25/2016 at 13:56 Approved by: Yvonne Laguerre MD, PhD on 11/25/2016 at 14:01 Cardiac Echo Impressions Echocardiogram Report Name: JACLYN YU SStudy Date : 11/26/2016 Height: 64 in Hospital Exam Location: [facility] Weight: 132 lb Gender: Female BSA: 1.6 m2 : 1945 Age: 71 yrs BP: 131/68 mm Hg Reason For Study: PULMONARY INFILTRATE Ordering Physician: [facility]OSPITALIST [facility] Performed By: Harper Camilo Referring Physician: Dr. Dallas Boudreaux Interpretation Summary The ejection fraction is estimated to be 60-65%. There is mild mitral regurgitation. The right ventricular systolic pressure is estimated at 25 mmHg assuming a right atrial pressure of 3 mm Hg. Assessment & Plan The patient is a very pleasant 71-year-old white female with a history of asthma which was not problematic until 11/13/2016. Patient developed significant chest and back pain and went to an urgent care. She saw Dr. Torres who diagnosed her with reactive airway disease and ordered a nebulizer treatment and inhalers and a's azithromycin for her. Patient took all the medications and treatments as prescribed. One week later her chest congestion worsened and patient had a cough with the production of yellow "gunk". She went back to urgent care and saw Dr. Hernandez who diagnosed her with bronchitis and gave her nebulizer treatments and started an antibiotic which she does not know the name of but knew that it was 500 mg twice a day. Patient took the antibiotic as prescribed. Patient then continued to have a cough over the last 24 hours along with chest discomfort and shortness of breath. Patient therefore came to [facility] emergency room and was evaluated by Mavis REILLY. Patient was found to have on chest x-ray and on CT scan focal airspace opacities noted in the right lower lobe most consistent with pneumonia. There is small airspace opacities noted in the right middle lobe and left lower lobe suspicious for multilobar pneumonia. There is also a 1 cm nodule in the lingula of the left upper lobe. As patient had failed 2 courses of oral antibiotic therapy patient was admitted to the hospital service for further evaluation and treatment. # Bilateral pneumonia. Present at the time of admission. Active - Patient failed 2 courses of oral antibiotic therapy as an outpatient. - Rule out aspiration pneumonitis as patient is admitting that she chokes on food and coughs while eating. States that she has trouble swallowing her pills lately. We have asked speech therapy to see the patient. We will order a modified barium swallow. - Rule out healthcare associated pneumonia as patient was hospitalized on 2016 for an appendectomy. - Rule out resistant bacterial infection such as MRSA. - Rule out viral infection as patient is sneezing and coughing. Patient's respiratory viral PCR screen was positive for rhinovirus/enterovirus - We will continue Zosyn, and levofloxacin pending further testing.. - We will discontinue vancomycin as MRSA screen was negative. # Asthma or reactive airway disease with acute exacerbation secondary to above. Present on admission. Active - We will continue nebulizer treatments with DuoNeb SVN every 6 hours. - We will continue albuterol when necessary. # History of recent colonoscopy with polypectomy [address] Zamarripa.. One polyp was found in the appendix. - Patient is status post appendectomy by Dr. Stormy Romeo 11/02/2016. - She also had an EGD with no remarkable findings. Disposition: Patient is likely to be here another 48-72 hours for the evaluation and treatment of the above problems. Pain Evaluation: Adequate Pain Control GI Prophylaxis: Proton Pump Inhibitor VTE Prophylaxis: Sub-Q Enoxaparin Resuscitation Status: CPR: Attempt Resuscitation Timmy Bethea MD November 26, 2016 22:38
[2016-11-27] VITALS (14 sets, daily range): BP systolic 119–156; BP diastolic 71–84; PULSE 76–116; RESP 16–20; O2SAT 95–100
[2016-11-27] MEDS: Piperacillin-Tazo 3.375 Gm Inj 3.375 GM in Dextrose 5% Minibag Plus 50 ML IV SCH ×3 (00:47→18:06)
[2016-11-27] MEDS ORDERED: Vancomycin Serum Trough XX ONE (02:30)
[2016-11-27] MEDS: Albuterol-Ipratropium 3 mL Inhalation Solution NEB SCH ×4 (02:49→20:47)
[2016-11-27] MEDS: Pantoprazole 40 mg ER24 Tablet PO SCH (06:18)
[2016-11-27 06:26] LABS: BASOPHILS % (AUTO) 0.4 % (0-3); EOSINOPHILS % (AUTO) 2.9 % (0-5); Mean Corpuscular Volume 95.6 fL (81-100); NEUTROPHILS % (AUTO) 60.8 % (40-74); Platelet Count 189 bil/L (150-400)
--- NOTE | 2016-11-27 06:43 | NUR ---
Respiration Pt denies SOB. Intermittent cough,reports small green sputum, symptoms "much better". Decline Tessalon ivette when offered. Crackles at bilateral LLS,no wheezes. SPO2 around 98% on RA.NEB administered by RT. Deep breathing encouraged.
[2016-11-27 06:45] LABS: Magnesium 2.2 mg/dL (1.6-2.6)
[2016-11-27] MEDS: PREMARIN 0.45 MG PO SCH (08:30)
[2016-11-27] MEDS: Ascorbic Acid 500 mg Tablet PO SCH (09:14)
[2016-11-27] MEDS: Potassium Chloride 20 mEq SR Tablet PO SCH ×3 (09:14→20:29)
[2016-11-27] MEDS: Omega-3 Fatty Acids 1,000 mg Capsule PO SCH (09:15)
--- NOTE | 2016-11-27 10:12 | NUR ---
Physical Therapy: Pt has met all PT goals and is released to nursing for ambulation in the hallway 2-3 times per day as pt tolerates with SBA.
--- NOTE | 2016-11-27 11:25 | NUR ---
Evaluation completed. Please go to "Notes" then click on "Assessments and Notes" (bottom left corner of screen). Then select appropriate discipline tab on top of screen.
--- NOTE | 2016-11-27 11:54 | DRSVH ---
PROCEDURE: X-RAY BARIUM SWALLOW WITH FOOD & VIDEOGRAPHY ([id number]) INDICATIONS: Suspect aspiration Pneumonia TECHNIQUE: Examination was conducted in conjunction with speech pathology per standard protocol. In the lateral projection, filming was performed of the patient swallowing. AP projection filming may also be performed with patient swallowing. COMPARISON: None. FINDINGS: Function: The oral preparatory phase appears normal, with proper containment. The subsequent oral pr opulsive phase, pharyngeal phase, and esophageal phase of swallowing also appear normal with all prof fered substances. No laryngotracheal penetration or aspiration. No pathologic vallecular pooling. The attending physician was personally present in the room during the examination. Morphology: No cricopharyngeal bar is identified. No cervical esophageal webs. No Zenker's diverti culum. No strictures. IMPRESSION: No laryngeal penetration or tracheobronchial aspiration. Dictated by: Rolando Anton [facility] Interpreted: Kiet Cavazos MD on 11/27/2016 at 11:54 Transcribed by: ARTUR on 11/27/2016 at 11:54 Approved by: Kiet Cavazos M.D. on 11/27/2016 at 12:00
--- NOTE | 2016-11-27 14:21 | NUR ---
Pt. screened for OT needs. None identified. DC order. Shahab Davis, OTR/L
--- NOTE | 2016-11-27 15:21 | CONS ---
[address] [address] CONSULTATION REPORT PATIENT: JACLYN UY : 1945 MR#: [id number] ADMIT: 11/25/2016 JOB ID: [id number] DATE OF SERVICE: 11/27/2016 INFECTIOUS DISEASE CONSULTATION: I thank Dr. Eriberto Bethea for this timely consult. DATE OF SERVICE: REASON FOR CONSULT: Right-sided pneumonia-viral +/- bacterial. HISTORY OF PRESENT ILLNESS: The patient is a 71-year-old woman in relatively good health. She was recently diagnosed with what sounds like a recrudescence of asthma she had as a young woman which became problematic just a couple months ago. She was felt to have some underlying infection and was seen in Urgent Care in [facility] in early November, but at that time she was given a prescription for azithromycin but did not get a whole lot better so she was seen there a second time and given a longer course of cefuroxime 500 p.o. b.i.d. After the cefuroxime, she got much better. She then had a colonoscopy which disclosed an appendiceal abnormality and underwent an appendectomy and partial cecotomy back on October 25 at this facility which was done by Dr. Romeo. This was an uncomplicated procedure. After discharge home though, the patient's cough recurred and it was very severe coughing not associated with any significant shortness of breath, fevers, chills or sweats. This cough was so severe at times her said though it seemed almost impossible she could breathe in between these long paroxysms of coughing. The cough was initially nonproductive but eventually produced a greenish sputum. At no time was there hemoptysis and she denied any pleuritic chest pain or shortness of breath with this. Likewise there were no fevers, chills, sweats, ENT symptoms, sinus fullness or GI symptoms. The patient was eventually admitted to this facility on November 25 because of the severity of this chest congestion and cough. During her evaluation here in the emergency department on the , the chest x-ray showed a right lower lobe infiltrate which is thought to be most consistent with pneumonia and there were some smaller abnormality seen in other areas of the lung which raised even the possibility of a multifocal health-care associated pneumonia given her recent admission here for the GI surgery. Because of all these concerns, she was started on vanc, Zosyn and levo for healthcare associated pneumonia. Over two days in the hospital, she reports that her cough has been moderating. She still has no fevers, chills or sweats and she has less cough than on admission. PAST MEDICAL HISTORY: 1. Asthma. 2. History of osteomyelitis, right ankle. 3. Status post appendectomy and partial cecotomy on October 25, 2016. SOCIAL HISTORY: The patient was a heavy drinker in the distant past but not in the past couple decades. She is a non-cigarette smoker. FAMILY HISTORY: Negative for tuberculosis in first or second-degree relative. REVIEW OF SYSTEMS: Was done. The patient states she has no significant headache, no sinus pressure, no ear ache. No sores in the mouth. No pharyngitis. No trouble swallowing. She does have the cough as described in the history of present illness. No nausea, vomiting, diarrhea or dysuria. She has had no weight loss. No new troubles with the joints and no particular troubles with ambulation though she has been quite fatigued lately. Review of systems otherwise negative. PHYSICAL EXAMINATION: Reveals an afebrile woman, temperature 36.7, pulse 89, respiratory rate 16, blood pressure 119/71. She is saturating well on room air and in no acute distress. Her mental status is normal. Head without any trauma. Sinuses nontender. Ears and mastoids appear normal. Neck is supple without adenopathy. Lungs are clear to auscultation with the exception of a few crackles heard at the right base. No rubs are heard. Cardiac tones regular rate and rhythm. The abdomen is soft and nontender without hepatosplenomegaly. No Mcnulty catheter is present. The extremities are without clubbing, edema, cellulitic changes or evidence of synovitis. The patient is neurologically intact with good strength throughout. LABORATORIES: Include a white count 13,000 on admission with 86% segs, now 5200 with normal differential. Creatinine 0.71. LFTs are normal. Procalcitonin 0.3 x2 measurements. Urinalysis without any white cells. Micro includes multiple blood cultures which are negative, sputum which had moderate polys but very few organisms and grew only scant normal jessica. Respiratory viral PCR positive for rhino virus, enterovirus. PCR of the nares for MRSA negative. IMAGING: Includes a chest x-ray and CT angio. I reviewed on the screen. The CT angio shows a fairly distinct right lower lobe infiltrate as well as a couple small irregular areas of possible consolidation. The chest CT confirms this right lower lobe infiltrate. IMPRESSION: This is a bit of a strange story of a woman who for about three weeks has been battling a constant hacking and sometimes uncontrollable cough. She was initially given azithromycin, which did not help and then given cefuroxime which at least temporarily did seem to help. She she then underwent an abdominal surgery to resect an abnormal appearing appendix which was basically an uncomplicated surgery but after that her cough started and became even more severe. This cough is associated not only with some greenish sputum production but also with wheezing but not especially associated with any significant shortness of breath. It is notable that this newest episode of cough began shortly after a visit from a 3-year-old grandchild who is quite ill. This certainly raises the possibility that this is primarily a viral pneumonia and certainly our respiratory viral PCR would tend to go along with that. RECOMMENDATIONS: 1. I would continue for now with the broad-spectrum antibiotics including levofloxacin and Zosyn while we attempt to get to know this patient a little bit better. 2. Urine antigens for Legionella and pneumococcus will be checked. 3. A repeat procalcitonin will be checked for the morning. 4. Cryptococcal antigen will be obtained for tomorrow morning's blood draw. 5. Will continue to closely follow this complex patient with you. I suspect that what is primarily going on here is a viral infection which she likely acquired from her ill grandchild and she could probably discharge tomorrow but will continue to closely watch and see whether that plays out over the next 24 hours or not. Thank you very much for this consult.
[2016-11-27] MEDS: levoFLOXacin Inj 500 MG in IV Premix 1 EACH IV SCH (16:59)
--- NOTE | 2016-11-27 19:29 | NUR ---
HR Recd call from tele reporting 6bts of PSVT. Pt asymptomatic, RN was in pts room. PO K+ changed to TID today from BID. Will continue to monitor.
[2016-11-27] MEDS: diphenhydrAMINE 25 mg Capsule PO SCH (20:29)
--- NOTE | 2016-11-27 21:27 | PCM.PNMED ---
Subjective Date of Service November 27, 2016 Subjective Patient is feeling a little bit better today. She is states that the phlegm is starting to loosen up. She states that she is coughing it up and it is still "green". She has no other new complaints. Exam Vital Signs Vital Sign - Last Date Time Temp Pulse Resp B/P Pulse Ox O2 Delivery O2 Flow Rate FiO2 11/27/16 20:47 85 18 95 Room Air 11/27/16 20:37 36.4 155/84 Intake and Output 11/26/16 11/26/16 11/27/16 Cumulative From/Thru 15:00 23:00 07:00 11/25/16 12:30 - 11/27/16 06:56 Intake Total 1462 ml 805 ml 4560 ml Output Total 1200 ml 650 ml 3150 ml Balance 262 ml 155 ml 1410 ml Intake Oral 1300 ml 675 ml 2925 ml IV Total 162 ml 130 ml 1635 ml Output Urine Total 1200 ml 650 ml 3150 ml # Bowel Movements 0 0 0 Exam General: Patient appears more comfortable today and is coughing much less during my interview and exam. HEENT: Head is atraumatic and normocephalic. Eyes: Pupils are equally round and reactive to light and accommodation. Extraocular muscles are intact. Sclera are white, anicteric. Subconjunctival mucosa is pink. Ears and nose are unremarkable. Oropharynx: There is no mucosal lesions, there is no thrush, there is no pharyngitis. Neck: Is supple, there are no nodes, or masses or tenderness. Chest: Is significant for bibasilar crackles right greater than left with some expiratory wheezing. Sounds are slightly clear again today. Heart: Rate, rhythm is regular. There is no appreciable murmur, rub or gallop. Although, heart tones continued to be muffled by course breath sounds Abdomen: Good bowel sounds are present. Abdomen is soft, nontender, no organomegaly or masses were appreciated. Extremities: Are symmetrical and well perfused. There is no edema, there is no cellulitis, no rash. Neurologic: There are no focal neurological deficits. Cranial nerves II through XII are intact. There are no sensory or motor deficits. Psychiatric: Patients mood is calm and shows no sign of agitation. Genital: Deferred Rectal: Deferred Lab and Diagnostics Result Diagram: 11/27/16 0535 11/27/16 0535 Microbiology Blood cultures are pending. Sputum culture was ordered and is pending MRSA screen was negative RHINOVIRUS OR ENTEROVIRUS PCR Final 11/26/16-858 Organism 1 RHINOVIRUS/ENTEROVIRUS RHINOVIRUS OR ENTEROVIRUS DETECTED TIME CALLED: 858 DATE CALLED: 11/26/16 FLOOR/DOCTOR: CHULA/SIA Diaz CALLED BY: [facility]F X-Rays, CTs and MRIs PROCEDURE: CT ANGIO CHEST PULMONARY EMBOLISM ([id number]) INDICATIONS: cough, sob fever TECHNIQUE: After the administration of intravenous contrast, 2 mm thick sections acquired from the pulmonary apices to the posterior costophrenic angles. 3-dimensional maximum intensity projection (MIP) coronal and sagittal reformats were then acquired through the thorax. For radiation dose reduction, the following was used: automated exposure control, adjustment of mA and/or kV according to patient size. COMPARISON: None. FINDINGS: Image quality: Excellent. Pulmonary arteries: Pulmonary arteries are normal in size, and demonstrate no intraluminal filling defects to suggest central pulmonary embolism. Lungs and pleura: Focal airspace opacities noted in the right lower lobe, right middle lobe in the left lower lobe suspicious for pneumonia. 1 cm in diameter masslike opacity noted in the lingula of the left upper lobe. Atelectasis noted in the dependent portions of the lungs. No pleural effusions or pneumothorax. Central and peripheral airways are patent. Mediastinum: Heart size is normal, without pericardial effusion. Atherosclerotic calcifications are noted in the aorta, great vessels and the coronary vasculature. No mediastinal or hilar adenopathy. Thoracic aorta is normal in caliber and enhancement. Esophagus is normal in caliber, without hiatal hernia. Bones and chest wall: No suspicious bony lesions. Ribs and thoracic spine appear intact throughout. Spine degenerative disease and facet arthropathy noted. Thyroid gland is within normal limits. No axillary or supraclavicular adenopathy. Abdomen: Visualized upper abdominal solid organs appear normal in the early arterial phase of enhancement. IMPRESSION: 1. Focal airspace opacities noted in the right lower lobe most consistent with pneumonia. Smaller airspace opacities noted in the right middle lobe and left lower lobe suspicious for multilobar pneumonia. 2. 1 cm nodule in the lingula left upper lobe. Recommend followup imaging based on criteria outlined below. 3. No pulmonary embolus. 4. Atherosclerosis including the coronary vasculature. Dictated by: Yvonne Laguerre MD, PhD on 11/25/2016 at 14:31 Approved by: Yvonne Laguerre MD, PhD on 11/25/2016 at 14:36 PROCEDURE: X-RAY CHEST, TWO VIEWS ([id number]) INDICATIONS: cough fever TECHNIQUE: 2 views of the chest were acquired. COMPARISON: [facility], CR, XR CHEST 2VW, 09/21/2016, 12:50. FINDINGS: Surgical changes and devices: None. Lungs and pleura: No pleural effusions or pneumothorax. Focal opacity noted in the right lung base suspicious for pneumonia. Mediastinum: Mediastinal contours are normal. Heart size is normal. Bones and chest wall: No suspicious bony abnormalities. Soft tissues appear unremarkable. IMPRESSION: Right lower lobe pneumonia. Dictated by: Yvonne Laguerre MD, PhD on 11/25/2016 at 13:56 Approved by: Yvonne Laguerre MD, PhD on 11/25/2016 at 14:01 Cardiac Echo Impressions Echocardiogram Report Name: JACLYN YU SStudy Date : 11/26/2016 Height: 64 in Hospital Exam Location: [facility] Weight: 132 lb Gender: Female BSA: 1.6 m2 : 1945 Age: 71 yrs BP: 131/68 mm Hg Reason For Study: PULMONARY INFILTRATE Ordering Physician: HOSPITALIST [facility] Performed By: Harper Camilo Referring Physician: Dr. Dallas Boudreaux Interpretation Summary The ejection fraction is estimated to be 60-65%. There is mild mitral regurgitation. The right ventricular systolic pressure is estimated at 25 mmHg assuming a right atrial pressure of 3 mm Hg. Assessment & Plan The patient is a very pleasant 71-year-old white female with a history of asthma which was not problematic until 11/13/2016. Patient developed significant chest and back pain and went to an urgent care. She saw Dr. Torres who diagnosed her with reactive airway disease and ordered a nebulizer treatment and inhalers and a's azithromycin for her. Patient took all the medications and treatments as prescribed. One week later her chest congestion worsened and patient had a cough with the production of yellow "gunk". She went back to urgent care and saw Dr. Hernandez who diagnosed her with bronchitis and gave her nebulizer treatments and started an antibiotic which she does not know the name of but knew that it was 500 mg twice a day. Patient took the antibiotic as prescribed. Patient then continued to have a cough over the last 24 hours along with chest discomfort and shortness of breath. Patient therefore came to [facility] emergency room and was evaluated by Mavis REILLY. Patient was found to have on chest x-ray and on CT scan focal airspace opacities noted in the right lower lobe most consistent with pneumonia. There is small airspace opacities noted in the right middle lobe and left lower lobe suspicious for multilobar pneumonia. There is also a 1 cm nodule in the lingula of the left upper lobe. As patient had failed 2 courses of oral antibiotic therapy patient was admitted to the hospital service for further evaluation and treatment. # Bilateral pneumonia. Present at the time of admission. Active - Patient failed 2 courses of oral antibiotic therapy as an outpatient. - Rule out aspiration pneumonitis as patient is admitting that she chokes on food and coughs while eating. States that she has trouble swallowing her pills lately. We have asked speech therapy to see the patient. We will order a modified barium swallow. - Rule out healthcare associated pneumonia as patient was hospitalized on 2016 for an appendectomy. - Rule out resistant bacterial infection such as MRSA. Although, the MRSA screen by nasal smear was negative. - Rule out viral infection as patient is sneezing and coughing. Patient's respiratory viral PCR screen was positive for rhinovirus/enterovirus. - Rule out viral infection with bacterial superinfection. - We will continue Zosyn, and levofloxacin pending further testing.. - We have discontinued vancomycin, as MRSA screen was negative. - Dr. Barraza of infectious disease was consulted and appreciate his time and expertise. # Asthma or reactive airway disease with acute exacerbation secondary to above. Present on admission. Active - We will continue nebulizer treatments with DuoNeb SVN every 6 hours. - We will continue albuterol when necessary. # History of recent colonoscopy with polypectomy [address] Zamarripa.. One polyp was found in the appendix. - Patient is status post appendectomy by Dr. Stormy Romeo 11/02/2016. - She also had an EGD with no remarkable findings. Disposition: Patient is likely to be here another 48 hours for the evaluation and treatment of the above problems. Pain Evaluation: Adequate Pain Control GI Prophylaxis: Proton Pump Inhibitor VTE Prophylaxis: Sub-Q Enoxaparin VTE Mechanical Devices: Venous Foot Pump Resuscitation Status: CPR: Attempt Resuscitation Timmy Bethea MD November 27, 2016 21:27
[2016-11-28] VITALS (12 sets, daily range): BP systolic 127–151; BP diastolic 66–92; PULSE 70–105; RESP 18–20; O2SAT 96–100
[2016-11-28] MEDS: Piperacillin-Tazo 3.375 Gm Inj 3.375 GM in Dextrose 5% Minibag Plus 50 ML IV SCH ×2 (00:48→08:47)
[2016-11-28] MEDS: Albuterol-Ipratropium 3 mL Inhalation Solution NEB SCH ×4 (04:11→21:00)
[2016-11-28 05:51] LABS: BASOPHILS % (AUTO) 0.4 % (0-3); MONOCYTES % (AUTO) 10.3 % (4-12); Mean Corpuscular Hemoglobin 30.9 pg (27.0-35.0); Mean Corpuscular Volume 95.7 fL (81-100); NEUTROPHILS % (AUTO) 57.6 % (40-74); Platelet Count 217 bil/L (150-400)
[2016-11-28 06:22] LABS: Magnesium 2.2 mg/dL (1.6-2.6)
--- NOTE | 2016-11-28 06:23 | NUR ---
Pulmonary Pt has intermittent non productive cough. Pt receiving NEB treatments. Lung sounds clear. 98% on RA.
[2016-11-28] MEDS: Pantoprazole 40 mg ER24 Tablet PO SCH (06:36)
[2016-11-28] MEDS: PREMARIN 0.45 MG PO SCH (08:30)
[2016-11-28] MEDS: Ascorbic Acid 500 mg Tablet PO SCH (08:47)
[2016-11-28] MEDS: Potassium Chloride 20 mEq SR Tablet PO SCH ×3 (08:48→20:22)
[2016-11-28] MEDS: Omega-3 Fatty Acids 1,000 mg Capsule PO SCH (08:48)
--- NOTE | 2016-11-28 09:36 | DRSVH ---
PROCEDURE: X-RAY CHEST, TWO VIEWS ([id number]) INDICATIONS: Follow up for Pneumonia TECHNIQUE: 2 views of the chest were acquired. COMPARISON: [facility], CR, XR CHEST 2VW, 04/09/2016, 11:21. [facility], C R, XR CHEST 2VW, 11/26/2016, 8:22. FINDINGS: Surgical changes and devices: None. Lungs and pleura: Lung volumes are increased and hemidiaphragms are flattened. Interval decrease in right lower lobe focal airspace opacity. Interstitial prominence unchanged with likely scarring of t he right upper lobe. No pneumothorax. Mediastinum: Mediastinal contours are normal. Heart size is normal. Bones and chest wall: No suspicious bony abnormalities. Soft tissues appear unremarkable. IMPRESSION: 1. Large lung volumes suggesting COPD there 2. Resolving right lower lobe pneumonia. 3. Interstitial prominence unchanged. Dictated by: Rolando REYNA Interpreted: Niki Decker MD on 11/28/2016 at 9:35 Transcribed by: OLIVIER on 11/28/2016 at 9:36 Approved by: Niki Decker M.D. on 11/28/2016 at 16:01
--- NOTE | 2016-11-28 09:42 | PROG NOTE ---
[address] [address] PROGRESS NOTE PATIENT: JACLYN YU : 1945 MR#: [id number] ADMIT: 11/25/2016 JOB ID: [id number] DATE: 11/28/2016 INFECTIOUS DISEASE FOLLOW UP NOTE: REASON FOR FOLLOW UP: Right-sided pneumonia. INTERVAL HISTORY: The patient reports that overnight she has been feeling much better. Her cough is still productive of some greenish sputum and occurs fairly frequently but overall her cough has diminished. She denies any shortness of breath or right pleuritic chest pain. She has no fevers or chills. No nausea, vomiting, diarrhea or rash. PHYSICAL EXAMINATION: The patient was febrile to 38.5 on admission three days ago. Since then, she has been afebrile, now 36.8, pulse 90, respiratory rate 19, blood pressure 127/66, saturating well on room air. Examination of the head, no trauma. Eyes without conjunctivitis. Oral cavity without thrush or hairy leukoplakia. No exudates are noted. Lungs: A few crackles at the right base but improved over yesterday with good air flow bilaterally. Cardiac tones regular rate and rhythm. Abdomen benign. LABORATORIES: Include a white count of 4900, completely normal differential. Creatinine 0.61. Procalcitonin at its maximum was 0.34. Today it is 0.21. LFTs normal. Urinalysis without white cells. Urine Legionella and pneumococcal antigens negative. Serum crypto antigen is pending. MRSA screen negative. Respiratory viral PCR positive for rhinovirus enterovirus. IMAGING: Today has not been read by the radiologist but when I compare today's film to one done two days ago, I think there is a dramatic decrease in the right-sided pulmonary infiltrate. IMPRESSION: This is a 71-year-old woman with a right-sided pulmonary infiltrate. Whether this is purely viral is unclear but recent studies have indicated that many more adult pneumonias are viral that was previously suspected in the literature five or 10 years ago and rhinovirus is emerging as a significant cause of adult pulmonary infection. I see little evidence for severe ongoing bacterial infection here with no fever, normal white count and differential and a fairly low and declining procalcitonin. RECOMMENDATIONS: 1. I think the patient could be discharged at any time on oral Levaquin to finish a five day course. This would provide coverage if there is indeed a bacterial superimposed infection which I rather doubt. This is the third day of levo so it could be continued on an outpatient basis through November 30 or two more days beyond today and then stopped. 2. The Zosyn could be discontinued at any time and I think the patient is probably about ready for discharge. I see no real evidence for an aspiration pneumonia. 3. Note the aspiration pneumonia studies and swallow studies specifically were negative. 4. ID will go ahead and sign off.
--- NOTE | 2016-11-28 14:42 | NUR ---
SW- Readiness for Discharge Data: Pt is on day 3 of hospitalization for multilobar pneumonia. EMR reviewed. Per morning rounds pt is likely to discharge home tomorrow pending chest xray. Pt is up independent in room. Pt resides in [place] with and is likely to discharge home via in POV. No further needs assessed at this time. SW will continue to follow. Assessment: Pt who is independent at baseline Plan: Pt likely to discharge home tomorrow via POV with no needs assessed. SW will continue to follow. RAFFI Ortiz
[2016-11-28] MEDS ORDERED: BENZ100C8 PO (15:15)
[2016-11-28] MEDS ORDERED: LEVO500T16 PO (15:15)
[2016-11-28] MEDS ORDERED: Lactobacillus Acidophilus PO (15:15)
[2016-11-28] MEDS ORDERED: METR500T PO (15:15)
[2016-11-28] MEDS ORDERED: 0.9% Sodium Chloride 250 ML ONE (16:07)
[2016-11-28] MEDS: levoFLOXacin Inj 500 MG in IV Premix 1 EACH IV SCH (16:13)
[2016-11-28] MEDS: diphenhydrAMINE 25 mg Capsule PO SCH (20:22)
--- NOTE | 2016-11-28 23:06 | PCM.PNMED ---
Subjective Date of Service November 28, 2016 Subjective The patient is feeling a little bit better today. Her cough is less and her shortness of breath is improved. She has no new complaints. Exam Vital Signs Vital Sign - Last Date Time Temp Pulse Resp B/P Pulse Ox O2 Delivery O2 Flow Rate FiO2 11/28/16 21:03 36.2 77 20 138/82 100 Room Air Intake and Output 11/27/16 11/27/16 11/28/16 Cumulative From/Thru 15:00 23:00 07:00 11/25/16 12:30 - 11/28/16 06:24 Intake Total 1618 ml 1232 ml 7410 ml Output Total 1500 ml 500 ml 5150 ml Balance 118 ml 732 ml 2260 ml Intake Oral 1618 ml 1050 ml 5593 ml IV Total 182 ml 1817 ml Output Urine Total 1500 ml 500 ml 5150 ml # Bowel Movements 5 0 5 Exam General: Patient appears more comfortable today and is coughing much less during my interview and exam. HEENT: Head is atraumatic and normocephalic. Eyes: Pupils are equally round and reactive to light and accommodation. Extraocular muscles are intact. Sclera are white, anicteric. Subconjunctival mucosa is pink. Ears and nose are unremarkable. Oropharynx: There is no mucosal lesions, there is no thrush, there is no pharyngitis. Neck: Is supple, there are no nodes, or masses or tenderness. Chest: Is much clearer today with some residual bibasilar crackles right greater than left with some expiratory wheezing. Heart: Rate, rhythm is regular. There is no appreciable murmur, rub or gallop. Although, heart tones continued to be muffled by coarse breath sounds. Abdomen: Good bowel sounds are present. Abdomen is soft, nontender, no organomegaly or masses were appreciated. Extremities: Are symmetrical and well perfused. There is no edema, there is no cellulitis, no rash. Neurologic: There are no focal neurological deficits. Cranial nerves II through XII are intact. There are no sensory or motor deficits. Psychiatric: Patients mood is calm and she shows no sign of agitation. Genital: Deferred Rectal: Deferred Lab and Diagnostics Result Diagram: 11/28/16 0515 11/28/1615 Microbiology Blood cultures are pending. Sputum culture was ordered and is pending MRSA screen was negative RHINOVIRUS OR ENTEROVIRUS PCR Final 11/26/16-858 Organism 1 RHINOVIRUS/ENTEROVIRUS RHINOVIRUS OR ENTEROVIRUS DETECTED TIME CALLED: 858 DATE CALLED: 11/26/16 FLOOR/DOCTOR: CHULA/SIA Diaz CALLED BY: [facility]F X-Rays, CTs and MRIs PROCEDURE: CT ANGIO CHEST PULMONARY EMBOLISM ([id number]) INDICATIONS: cough, sob fever TECHNIQUE: After the administration of intravenous contrast, 2 mm thick sections acquired from the pulmonary apices to the posterior costophrenic angles. 3-dimensional maximum intensity projection (MIP) coronal and sagittal reformats were then acquired through the thorax. For radiation dose reduction, the following was used: automated exposure control, adjustment of mA and/or kV according to patient size. COMPARISON: None. FINDINGS: Image quality: Excellent. Pulmonary arteries: Pulmonary arteries are normal in size, and demonstrate no intraluminal filling defects to suggest central pulmonary embolism. Lungs and pleura: Focal airspace opacities noted in the right lower lobe, right middle lobe in the left lower lobe suspicious for pneumonia. 1 cm in diameter masslike opacity noted in the lingula of the left upper lobe. Atelectasis noted in the dependent portions of the lungs. No pleural effusions or pneumothorax. Central and peripheral airways are patent. Mediastinum: Heart size is normal, without pericardial effusion. Atherosclerotic calcifications are noted in the aorta, great vessels and the coronary vasculature. No mediastinal or hilar adenopathy. Thoracic aorta is normal in caliber and enhancement. Esophagus is normal in caliber, without hiatal hernia. Bones and chest wall: No suspicious bony lesions. Ribs and thoracic spine appear intact throughout. Spine degenerative disease and facet arthropathy noted. Thyroid gland is within normal limits. No axillary or supraclavicular adenopathy. Abdomen: Visualized upper abdominal solid organs appear normal in the early arterial phase of enhancement. IMPRESSION: 1. Focal airspace opacities noted in the right lower lobe most consistent with pneumonia. Smaller airspace opacities noted in the right middle lobe and left lower lobe suspicious for multilobar pneumonia. 2. 1 cm nodule in the lingula left upper lobe. Recommend followup imaging based on criteria outlined below. 3. No pulmonary embolus. 4. Atherosclerosis including the coronary vasculature. Dictated by: Yvonne Laguerre MD, PhD on 11/25/2016 at 14:31 Approved by: Yvonne Laguerre MD, PhD on 11/25/2016 at 14:36 PROCEDURE: X-RAY CHEST, TWO VIEWS ([id number]) INDICATIONS: cough fever TECHNIQUE: 2 views of the chest were acquired. COMPARISON: [facility], CR, XR CHEST 2VW, 09/21/2016, 12:50. FINDINGS: Surgical changes and devices: None. Lungs and pleura: No pleural effusions or pneumothorax. Focal opacity noted in the right lung base suspicious for pneumonia. Mediastinum: Mediastinal contours are normal. Heart size is normal. Bones and chest wall: No suspicious bony abnormalities. Soft tissues appear unremarkable. IMPRESSION: Right lower lobe pneumonia. Dictated by: Yvonne Laguerre MD, PhD on 11/25/2016 at 13:56 Approved by: Yvonne Laguerre MD, PhD on 11/25/2016 at 14:01 Cardiac Echo Impressions Echocardiogram Report Name: JACLYN YU SStudy Date : 11/26/2016 Height: 64 in Hospital Exam Location: [facility] Weight: 132 lb Gender: Female BSA: 1.6 m2 : 1945 Age: 71 yrs BP: 131/68 mm Hg Reason For Study: PULMONARY INFILTRATE Ordering Physician: HOSPITALIST [facility] Performed By: Harper Camilo Referring Physician: Dr. Dallas Boudreaux Interpretation Summary The ejection fraction is estimated to be 60-65%. There is mild mitral regurgitation. The right ventricular systolic pressure is estimated at 25 mmHg assuming a right atrial pressure of 3 mm Hg. Assessment & Plan The patient is a very pleasant 71-year-old white female with a history of asthma which was not problematic until 11/13/2016. Patient developed significant chest and back pain and went to an urgent care. She saw Dr. Torres who diagnosed her with reactive airway disease and ordered a nebulizer treatment and inhalers and a's azithromycin for her. Patient took all the medications and treatments as prescribed. One week later her chest congestion worsened and patient had a cough with the production of yellow "gunk". She went back to urgent care and saw Dr. Hernandez who diagnosed her with bronchitis and gave her nebulizer treatments and started an antibiotic which she does not know the name of but knew that it was 500 mg twice a day. Patient took the antibiotic as prescribed. Patient then continued to have a cough over the last 24 hours along with chest discomfort and shortness of breath. Patient therefore came to [facility] emergency room and was evaluated by Mavis REILLY. Patient was found to have on chest x-ray and on CT scan focal airspace opacities noted in the right lower lobe most consistent with pneumonia. There is small airspace opacities noted in the right middle lobe and left lower lobe suspicious for multilobar pneumonia. There is also a 1 cm nodule in the lingula of the left upper lobe. As patient had failed 2 courses of oral antibiotic therapy patient was admitted to the hospital service for further evaluation and treatment. # Bilateral pneumonia. Present at the time of admission. Active - Patient failed 2 courses of oral antibiotic therapy as an outpatient. - Rule out aspiration pneumonitis as patient is admitting that she chokes on food and coughs while eating. States that she has trouble swallowing her pills lately. We have asked speech therapy to see the patient. We will order a modified barium swallow. - Rule out healthcare associated pneumonia as patient was hospitalized on 2016 for an appendectomy. - Rule out resistant bacterial infection such as MRSA. Although, the MRSA screen by nasal smear was negative. - Rule out viral infection as patient is sneezing and coughing. Patient's respiratory viral PCR screen was positive for rhinovirus/enterovirus. - Rule out viral infection with bacterial superinfection. - We will discontinue Zosyn - We will continue Levaquin and add oral Flagyl and would recommend completing a 7 day 10 day course as I suspect patient had a bacterial superinfection, superimposed over a viral infection. - We have discontinued vancomycin, as MRSA screen was negative. - Dr. Barraza of infectious disease was consulted and appreciate his time and expertise. # Asthma or reactive airway disease with acute exacerbation secondary to above. Present on admission. Active - We will continue nebulizer treatments with DuoNeb SVN every 6 hours. - We will continue albuterol when necessary. # History of recent colonoscopy with polypectomy [address] Zamarripa.. One polyp was found in the appendix. - Patient is status post appendectomy by Dr. Stormy Romeo 11/02/2016. - She also had an EGD with no remarkable findings. Disposition: Patient is likely to be here another 24 hours for the evaluation and treatment of the above problems. Dr. Holland will follow the patient in a.m. and likely discharge home in a.m. Pain Evaluation: Adequate Pain Control GI Prophylaxis: Proton Pump Inhibitor VTE Prophylaxis: Sub-Q Enoxaparin VTE Mechanical Devices: Venous Foot Pump Resuscitation Status: CPR: Attempt Resuscitation [place] MD November 28, 2016 23:06
[2016-11-29] MEDS: Pantoprazole 40 mg ER24 Tablet PO SCH (04:13)
[2016-11-29 04:16] VITALS: BP 140/77; PULSE 99; RESP 20; O2SAT 97
[2016-11-29 05:45] VITALS: PULSE 62
[2016-11-29 06:39] LABS: Magnesium 2.2 mg/dL (1.6-2.6)
[2016-11-29 07:15] LABS: BASOPHILS % (AUTO) 0.2 % (0-3); MONOCYTES % (AUTO) 14.4 % (4-12); Mean Corpuscular Hemoglobin 30.9 pg (27.0-35.0); Mean Corpuscular Volume 90.6 fL (81-100); NEUTROPHILS % (AUTO) 48.6 % (40-74); Platelet Count 227 bil/L (150-400)
[2016-11-29 08:00] VITALS: PULSE 91
[2016-11-29] MEDS: Albuterol-Ipratropium 3 mL Inhalation Solution NEB SCH (08:30)
[2016-11-29] MEDS: PREMARIN 0.45 MG PO SCH (08:30)
[2016-11-29 08:57] VITALS: BP 136/68; PULSE 90; RESP 22; O2SAT 95
[2016-11-29 09:15] LABS: Cryptococcal Ag Negative (Negative)
[2016-11-29] MEDS: Potassium Chloride 20 mEq SR Tablet PO SCH (09:49)
[2016-11-29] MEDS: Omega-3 Fatty Acids 1,000 mg Capsule PO SCH (09:51)
[2016-11-29] MEDS: Ascorbic Acid 500 mg Tablet PO SCH (09:51)
--- NOTE | 2016-11-29 11:37 | PCM.DIMED ---
Discharge Instructions Date of Service November 29, 2016 Dates of Hospitalization November 25, 2016 at 16:51 Discharge Diagnosis Discharge Diagnosis community acquired pneumonia Medication Instructions Additional med instructions take antibiotics, Levaquin, Flagyl for 7more days as directed. You can use benzonatate 100mg three times per day for cough as needed. You can use ventolin every 2-4hours as needed for cough, difficulty of breathing Diet Discharge Diet: No restrictions Activity Discharge Activity: No restrictions Call your provider Call your provider for: Fever or Chills, Shortness of breath Patient Instructions Patient Instructions You were hospitalized with pneumonia, treated appropriately with antibiotics. Please continue antibiotics as instructed above Please follow up with your primary doctor in 2weeks Follow-up Provider: Patrick Boudreaux MD Follow-up with PCP in: 2 weeks Reji Holland MD November 29, 2016 11:37
--- NOTE | 2016-11-29 11:43 | NUR ---
Social Work: Discharge Data: Pt is on day 4 of hospitalization. EMR reviewed. D/C orders are in. No d/c planning needs identified at this time. [employer] TE[employer]ER will continue to follow if needs arise. Assessment: Pt who is independent at baseline. Plan: Pt will d/c home via POV today. No d/c planning needs identified at this time. [employer] TE[employer]ER will continue to follow if needs arise. RAFFI Hernandez
--- NOTE | 2016-11-29 12:38 | NUR ---
Discharge Student nurse went over discharge instructions and medications with patient who verbally acknowledged understanding. Per Dr Holland: Dr Cueto sent the two abx prescriptions to [facility] yesterday. IV removed. Patient refused wheelchair left on foot with .
--- NOTE | 2016-11-29 16:36 | PCM.DC.MED ---
Discharge Summary Date of Service November 29, 2016 Dates of Hospitalization Date of Hospital Admission November 25, 2016 at 16:51 Date of Discharge: November 29, 2016 Providers: Admitting Physician: Timmy Bethea MD Primary Care Physician: Patrick Boudreaux MD Attending Physician: Timmy Bethea MD Diagnosis at Time of Discharge Diagnosis at Time of Discharge presumed community acquired pneumonia rhinovirus infection asthma Procedures XRay, CTs & MRIs PROCEDURE: CT ANGIO CHEST PULMONARY EMBOLISM ([id number]) INDICATIONS: cough, sob fever TECHNIQUE: After the administration of intravenous contrast, 2 mm thick sections acquired from the pulmonary apices to the posterior costophrenic angles. 3-dimensional maximum intensity projection (MIP) coronal and sagittal reformats were then acquired through the thorax. For radiation dose reduction, the following was used: automated exposure control, adjustment of mA and/or kV according to patient size. COMPARISON: None. FINDINGS: Image quality: Excellent. Pulmonary arteries: Pulmonary arteries are normal in size, and demonstrate no intraluminal filling defects to suggest central pulmonary embolism. Lungs and pleura: Focal airspace opacities noted in the right lower lobe, right middle lobe in the left lower lobe suspicious for pneumonia. 1 cm in diameter masslike opacity noted in the lingula of the left upper lobe. Atelectasis noted in the dependent portions of the lungs. No pleural effusions or pneumothorax. Central and peripheral airways are patent. Mediastinum: Heart size is normal, without pericardial effusion. Atherosclerotic calcifications are noted in the aorta, great vessels and the coronary vasculature. No mediastinal or hilar adenopathy. Thoracic aorta is normal in caliber and enhancement. Esophagus is normal in caliber, without hiatal hernia. Bones and chest wall: No suspicious bony lesions. Ribs and thoracic spine appear intact throughout. Spine degenerative disease and facet arthropathy noted. Thyroid gland is within normal limits. No axillary or supraclavicular adenopathy. Abdomen: Visualized upper abdominal solid organs appear normal in the early arterial phase of enhancement. IMPRESSION: 1. Focal airspace opacities noted in the right lower lobe most consistent with pneumonia. Smaller airspace opacities noted in the right middle lobe and left lower lobe suspicious for multilobar pneumonia. 2. 1 cm nodule in the lingula left upper lobe. Recommend followup imaging based on criteria outlined below. 3. No pulmonary embolus. 4. Atherosclerosis including the coronary vasculature. Dictated by: Yvonne Laguerre MD, PhD on 11/25/2016 at 14:31 Approved by: Yvonne Laguerre MD, PhD on 11/25/2016 at 14:36 PROCEDURE: X-RAY CHEST, TWO VIEWS ([id number]) INDICATIONS: cough fever TECHNIQUE: 2 views of the chest were acquired. COMPARISON: [facility], CR, XR CHEST 2VW, 09/21/2016, 12:50. FINDINGS: Surgical changes and devices: None. Lungs and pleura: No pleural effusions or pneumothorax. Focal opacity noted in the right lung base suspicious for pneumonia. Mediastinum: Mediastinal contours are normal. Heart size is normal. Bones and chest wall: No suspicious bony abnormalities. Soft tissues appear unremarkable. IMPRESSION: Right lower lobe pneumonia. Dictated by: Yvonne Laguerre MD, PhD on 11/25/2016 at 13:56 Approved by: Yvonne Laguerre MD, PhD on 11/25/2016 at 14:01 Cardiac Echo Impression Echocardiogram Report Name: JACLYN YU SStudy Date : 11/26/2016 Height: 64 in Hospital Exam Location: [facility] Weight: 132 lb Gender: Female BSA: 1.6 m2 : 1945 Age: 71 yrs BP: 131/68 mm Hg Reason For Study: PULMONARY INFILTRATE Ordering Physician: HOSPITALIST [facility] Performed By: Harper Camilo Referring Physician: Dr. Dallas Boudreaux Interpretation Summary The ejection fraction is estimated to be 60-65%. There is mild mitral regurgitation. The right ventricular systolic pressure is estimated at 25 mmHg assuming a right atrial pressure of 3 mm Hg. Brief History HPI obtained by on 11/25 The patient is a very pleasant 71-year-old white female with a history of asthma which was not problematic until 11/13/2016. Patient developed significant chest and back pain and went to an urgent care. She saw Dr. Torres who diagnosed her with reactive airway disease and ordered a nebulizer treatment and inhalers and a's azithromycin for her. Patient took all the medications and treatments as prescribed. One week later her chest congestion worsened and patient had a cough with the production of yellow "gunk". She went back to urgent care and saw Dr. Hernandez who diagnosed her with bronchitis and gave her nebulizer treatments and started an antibiotic which she does not know the name of but knew that it was 500 mg twice a day. Patient took the antibiotic as prescribed. Patient then continued to have a cough over the last 24 hours along with chest discomfort and shortness of breath. Patient therefore came to [facility] emergency room and was evaluated by Mavis REILLY. Patient was found to have on chest x-ray and on CT scan focal airspace opacities noted in the right lower lobe most consistent with pneumonia. There is small airspace opacities noted in the right middle lobe and left lower lobe suspicious for multilobar pneumonia. There is also a 1 cm nodule in the lingula of the left upper lobe. As patient had failed 2 courses of oral antibiotic therapy patient was admitted to the hospital service for further evaluation and treatment. Hospital Course The patient is a very pleasant 71-year-old white female with a history of asthma which was not problematic until 11/13/2016. Patient developed significant chest and back pain and went to an urgent care. She saw Dr. Torres who diagnosed her with reactive airway disease and ordered a nebulizer treatment and inhalers and a's azithromycin for her. Patient took all the medications and treatments as prescribed. One week later her chest congestion worsened and patient had a cough with the production of yellow "gunk". She went back to urgent care and saw Dr. Hernandez who diagnosed her with bronchitis and gave her nebulizer treatments and started an antibiotic which she does not know the name of but knew that it was 500 mg twice a day. Patient took the antibiotic as prescribed. Patient then continued to have a cough over the last 24 hours along with chest discomfort and shortness of breath. Patient therefore came to [facility] emergency room and was evaluated by Mavis REILLY. Patient was found to have on chest x-ray and on CT scan focal airspace opacities noted in the right lower lobe most consistent with pneumonia. There is small airspace opacities noted in the right middle lobe and left lower lobe suspicious for multilobar pneumonia. There is also a 1 cm nodule in the lingula of the left upper lobe. As patient had failed 2 courses of oral antibiotic therapy patient was admitted to the hospital service for further evaluation and treatment. Brief hospital course: pt was admitted with probable bacterial pneumonia, superimposed and with viral PNA with rhinovirus. since pt failed outpt tx, pt was treated with broad spectrum abx vancomycin and zosyn initially, eventually deescalated to Levaquin , Flagyl to finish 7 to 10days course. ID was consulted. other respiratory PCR, other infectious w/u including BCX, MRSA swab were all negative up to date. Respiratory status was stable, didn't require O2 supplement on the day discharge. patient was asked to follow up with PCP in 2weeks, uses alb inhalers as needed for SOB. # Bilateral pneumonia. Present at the time of admission. - Patient failed 2 courses of oral antibiotic therapy as an outpatient. - Rule out aspiration pneumonitis as patient is admitting that she chokes on food and coughs while eating. States that she has trouble swallowing her pills lately. We have asked speech therapy to see the patient. We will order a modified barium swallow. - Rule out healthcare associated pneumonia as patient was hospitalized on 2016 for an appendectomy. - Rule out resistant bacterial infection such as MRSA. Although, the MRSA screen by nasal smear was negative. - Rule out viral infection as patient is sneezing and coughing. Patient's respiratory viral PCR screen was positive for rhinovirus/enterovirus. - Rule out viral infection with bacterial superinfection. - We will discontinue Zosyn - We will continue Levaquin and add oral Flagyl and would recommend completing a 7 day 10 day course as I suspect patient had a bacterial superinfection, superimposed over a viral infection. - We have discontinued vancomycin, as MRSA screen was negative. - Dr. Barraza of infectious disease was consulted and appreciate his time and expertise. # Asthma or reactive airway disease with acute exacerbation secondary to above. Present on admission. Active - We will continue nebulizer treatments with DuoNeb SVN every 6 hours. - We will continue albuterol when necessary. # History of recent colonoscopy with polypectomy [address] Zamarripa.. One polyp was found in the appendix. - Patient is status post appendectomy by Dr. Stormy Romeo 11/02/2016. - She also had an EGD with no remarkable findings. Exam Vital Signs (Last) Date Time Temp Pulse Resp B/P Pulse Ox O2 Delivery O2 Flow Rate FiO2 11/29/16 08:57 36.4 90 22 136/68 95 Room Air Exam NADn no JVD CTAB no w,c RRR nl s1 s2 no mrg S,ND,NT,BS+ warm, no edema Test 11/25/16 13:00 11/25/16 16:10 11/26/16 06:12 11/27/16 14:43 Lactic Acid Level 1.4mmol/L (0.4-2.0) Troponin T < 0.010ug/L (0.0-0.011) Urine Color Yellow (YELLOW) Urine Appearance Clear (CLEAR,HAZY) Urine pH 5.0 (5.0-8.0) Urine Specific [place] <1.005 (1.003-1.035) Urine Protein Negativemg/dL (NEG,TRACE) Urine Glucose (UA) Negativemg/dL (NEGATIVE) Urine Ketones 15mg/dL (NEGATIVE) Urine Occult Blood Negative (NEGATIVE) Urine Nitrite Negative (NEGATIVE) Urine Bilirubin Negative (NEGATIVE) Urine Urobilinogen Normalmg/dL (NORMAL) Urine Leukocyte Esterase Negative (NEGATIVE) Urine RBC 0-2/hpf (0-2) Urine WBC 0-5/hpf (0-5) Urine Epithelial Cells Few/hpf (NONE-MOD) Urine Crystals None seen (NONE SEEN) Urine Bacteria None/hpf (NONE-FEW) Urine Hyaline Casts None/lpf (NONE) Urine Granular Casts None seen (NONE SEEN) Urine Waxy Casts None seen (NONE SEEN) Urine Red Blood Cell Casts None seen (NONE SEEN) Urine White Blood Cell Casts None seen (NONE SEEN) Urine Mucus None seen (None Seen) Urine Trichomonas None seen (NONE SEEN) Urine Yeast None (NONE SEEN) Urinalysis Comment None Urine Culture Reflexed Not indicated Erythrocyte Sedimentation Rate 48mm/hr (0-40) C-Reactive Protein 17.4mg/dL (0.0-0.5) Pro-B-Type Natriuretic Peptide 368.0pg/mL (0-301) Urine Legionella pneumophilia Ag Negative (Negative) Test 11/28/16 05:15 11/29/16 05:45 Procalcitonin 0.21ng/mL (0.00-0.08) Cryptococcus Antigen Negative (Negative) White Blood Count 5.3th/mm3 (3.8-10.1) Red Blood Count 3.50mil/mm3 (3.90-5.20) Hemoglobin 10.8g/dL (12.0-15.6) Hematocrit 31.7% (35.0-46.0) Mean Corpuscular Volume 90.6fL (81-100) Mean Corpuscular Hemoglobin 30.9pg (27.0-35.0) Mean Corpuscular Hemoglobin Concent 34.1% (32.0-37.0) Red Cell Distribution Width 13.4% (12.3-15.4) Platelet Count 227bil/L (150-400) Neutrophils (%) (Auto) 48.6% (40-74) Lymphocytes (%) (Auto) 32.6% (14-46) Monocytes (%) (Auto) 14.4% (4-12) Eosinophils (%) (Auto) 4.0% (0-5) Basophils (%) (Auto) 0.2% (0-3) Sodium Level 140mEq/L (134-144) Potassium Level 4.6mEq/L (3.5-5.2) Chloride Level 104mEq/L (97-108) Carbon Dioxide Level 25mmol/L (18-29) Blood Urea Nitrogen 5mg/dL (8-27) Creatinine 0.60mg/dL (0.57-1.00) Estimat Glomerular Filtration Rate 140mL/min (>59) Glucose Level 90mg/dL (60-99) Calcium Level 9.3mg/dL (8.5-10.1) Magnesium Level 2.2mg/dL (1.6-2.6) Total Bilirubin 0.3mg/dL (0.0-1.2) Aspartate Amino Transf (AST/SGOT) 17U/L (0-50) Alanine Aminotransferase (ALT/SGPT) 9U/L (0-32) Alkaline Phosphatase 43U/L (25-165) Total Protein 5.9g/dL (6.4-8.4) Albumin 3.4g/dL (3.4-5.0) Microbiology Results Blood cultures are pending. Sputum culture was ordered and is pending MRSA screen was negative RHINOVIRUS OR ENTEROVIRUS PCR Final 11/26/16-858 Organism 1 RHINOVIRUS/ENTEROVIRUS RHINOVIRUS OR ENTEROVIRUS DETECTED TIME CALLED: 858 DATE CALLED: 11/26/16 FLOOR/DOCTOR: CHULA/SIA Diaz CALLED BY: VF Discharge Medications Discharge Medications ([Lactobacillus Acidophilus]) 1 TABLET TABLET 2 TABLET PO PCHS Prescribed by: CATARINA BETHEA MD Ascorbate Calcium (Vitamin C) 500 Mg Tablet 500 MG PO DAILY (Reported) Aspirin (Aspirin) 81 Mg Tablet 81 MG PO DAILY (Reported) Cholecalciferol (Vitamin D3) (Vitamin D3) 1,000 Unit Tab.chew 3,200 UNIT PO DAILY (Reported) Esomeprazole Magnesium (Nexium) 20 Mg Capsule.dr 20 MG PO DAILY (Reported) Estrogens, Conjugated (Premarin) 0.45 Mg Tablet 0.45 MG PO DAILY (Reported) Ibuprofen (Advil) 200 Mg Capsule 200 MG PO PRN (Reported) Levofloxacin (Levaquin) 500 Mg Tablet 500 MG PO DAILY Prescribed by: CATARINA BETHEA MD Metronidazole (Flagyl) 500 Mg Tablet 500 MG PO Q8 Prescribed by: CATARINA BETHEA MD Montelukast (Montelukast) 10 Mg Tablet 10 MG PO HS (Reported) [place]-3 Fatty Acids/Fish Oil (Fish Oil 1,000 mg Softgel) 1 Each Capsule 1 EACH PO DAILY (Reported) As needed Acetaminophen (Acetaminophen) 325 Mg Tablet 325 MG PO Q4H PRN PRN For Pain ( Reported) Benzonatate (Benzonatate) 100 Mg Capsule 100 MG PO TID PRN PRN For Cough Prescribed by: CATARINA BETHEA MD oxyCODONE (oxyCODONE) 5 Mg Tablet 5-10 MG PO Q4H PRN PRN For Severe Pain Prescribed by: STORMY ROMEO MD Miscellaneous Medications Albuterol Sulfate (Ventolin HFA Inhaler) 200 Puff/18 Gm Inhaler (Reported) Ipratropium [place] (Ipratropium [place] 0.06% Nasal) 15 Ml [place] (Reported) Meloxicam (Meloxicam) 7.5 Mg Tablet (Reported) Additional med instructions take antibiotics, Levaquin, Flagyl for 7more days as directed. You can use benzonatate 100mg three times per day for cough as needed. You can use ventolin every 2-4hours as needed for cough, difficulty of breathing Followup Plan Disposition: home Discharge Diet: No restrictions Discharge Activity: No restrictions Patient Instructions You were hospitalized with pneumonia, treated appropriately with antibiotics. Please continue antibiotics as instructed above Please follow up with your primary doctor in 2weeks Follow-up Provider: Grierson, Patrick B MD Follow-up with PCP in: 2 weeks Time spent 65min Reji Holland MD November 29, 2016 14:39
== END 2016-11-29 12:36 | disposition home or self-care (01) | DRG 178 ==
LOC: SED 12:24 → MPC 16:51
PROVIDERS: ADMIT Internal Medicine Infectious Disease; ATTEND Internal Medicine Infectious Disease
DX: J15.6 Pneumonia due to other Gram-negative bacteria (principal); J45.901 Unspecified asthma with (acute) exacerbation; Z79.82 Long term (current) use of aspirin; Z77.22 Contact with and (suspected) exposure to environmental tobacco smoke (acute) (chronic)